=== PATIENT | male | born 1970 | race Caucasian/White ===

== ENCOUNTER 2019-05-09 17:40 | Inpatient (IN) | payer MEDICAID ==
[~2019-05-09] VITALS: Ht 180.3 cm; Wt 94.8 kg
[2019-05-09 17:40] VITALS: BP 172/118
--- NOTE | 2019-05-09 17:40 | NUR ---
PT BIBA TO ER BED 10
[2019-05-09] MEDS ORDERED: FUROSEMIDE 40 MG/4 ML VIAL IVP ONE ×2 (17:46→17:50)
[2019-05-09] MEDS ORDERED: ALBUTEROL SULFATE/IPRATROPIU 3 ML SOL IH ONE (17:50)
--- NOTE | 2019-05-09 17:59 | NUR ---
PT BIBA FROM STREET. PER [id number] C/O SOB FOR ONE HOUR AND GENERALIZED BODY EDEMA STARTED FROM BILATERAL LEGS ABOUT 6 MONTHS AGO. PT DENIES HAVING CP, COUGH, PMH, TAKEN MEDS. LUNG BASED AUSCULTATED WHEEZING BILATERAL. EDEMA ON LOWER EXTREMETIES EDEMA BILATERAPATIENT, EYE LIDS, FACE NOTICED. LUNGS AUSCULTATED WHEEZES ON BASES. STATES PAIN OF 4/10 ON THE SKIN OF LEGS AT THIS TIME; VSS; PATIENT POSITIONED FOR COMFORT; HOB ELEVATED; BEDRAILS UP X2; BED DOWN. ER MD MADE AWARE OF PT STATUS.
[2019-05-09 18:19] LABS: BASOPHILS # (AUTO) 0.1 K/uL (0.00-0.22); BASOPHILS % (AUTO) 0.8 % (0.0-2.0); EOSINOPHILS # (AUTO) 0.1 K/uL (0-0.4); EOSINOPHILS % (AUTO) 1.7 % (0.0-4.0); HEMATOCRIT 49.3 % (36-52); HEMOGLOBIN 16.2 g/dL (12.0-18.0); LYMPHOCYTES # (AUTO) 1.6 K/uL (2.0-11.5); LYMPHOCYTES % (AUTO) 21.2 % (20.5-51.1); MEAN CORPUSCULAR HEMOGLOBIN 31 pg (27-31); MEAN CORPUSCULAR HGB CONC 33 g/dL (33-37); MONOCYTES # (AUTO) 0.6 K/uL (0.8-1.0); MONOCYTES % (AUTO) 8.6 % (1.7-9.3); NEUTROPHILS % (AUTO) 67.7 % (42.2-75.2); PLATELET COUNT (AUTO) 221 K/uL (140-450); RED BLOOD CELL COUNT(AUTO) 5.25 MIL/uL (4.20-6.10); RED CELL DISTRIBUTION WIDTH 14.3 % (11.6-13.7); WHITE BLOOD COUNT (AUTO) 7.4 K/uL (4.8-10.8)
[2019-05-09 18:54] LABS: PROTHROMBIN TIME 9.9 secs (10.8-13.4)
[2019-05-09 19:02] LABS: ALBUMIN 3.1 g/dL (3.4-5.0); ANION GAP 11.9 (8-16); CARBON DIOXIDE 28.6 mmol/L (21-32); CREATININE 1.1 mg/dL (0.7-1.3); POTASSIUM 4.5 mmol/L (3.5-5.1); TOTAL BILIRUBIN 1.1 mg/dL (0.0-1.0)
[2019-05-09 19:20] LABS: APPEARANCE,URINE CLEAR (CLEAR); BILIRUBIN,URINE NEGATIVE (NEGATIVE); BLOOD, URINE NEGATIVE (NEGATIVE); LEUKOCYTE ESTERASE ,URINE NEGATIVE (NEGATIVE); NITRITE, URINE NEGATIVE (NEGATIVE); PH,URINE 5.5 (5.0-9.0); UGLUCOSE NEGATIVE (NEGATIVE)
[2019-05-09] MEDS: NACL 0.9% 1,000 ML IV SCH (19:21)
[2019-05-09 19:22] LABS: COLOR,URINE STRAW (YELLOW)
[2019-05-09] MEDS ORDERED: HYDROcodone/APAP 5/325 MG 1 TAB TAB PO PRN (19:25)
[2019-05-09] MEDS ORDERED: ZOLPIDEM 5 MG TAB PO PRN (19:25)
[2019-05-09] MEDS ORDERED: LORazepam 2 MG/ML VIAL IM/IVP PRN (19:25)
[2019-05-09] MEDS ORDERED: ACETAMINOPHEN 325 MG TAB PO PRN (19:25)
[2019-05-09] MEDS ORDERED: ONDANSETRON 4 MG/2 ML VIAL IM/IVP PRN (19:25)
[2019-05-09] MEDS ORDERED: DOCUSATE SODIUM 100 MG GELCAP PO PRN (19:25)
[2019-05-09] MEDS ORDERED: MORPHINE SULFATE 2 MG/ML SYR IVP PRN (19:25)
[2019-05-09] MEDS ORDERED: ALBUTEROL SULFATE/IPRATROPIU 3 ML SOL IH PRN (19:30)
--- NOTE | 2019-05-09 19:53 | NUR ---
Patient will be admitted to care of [facility]. Admited to TELE. Will go to room 119B. Belongings list completed. Report to DEBORAH LEWIS.
--- NOTE | 2019-05-09 20:00 | NUR ---
PT BROUGHT UP TO UNIT BY DEMETRIA TO ROOM 119 AND ASSISTED EMT'S TO BED B. PT IS AOX 1-2. HE IS ALERT BUT LETHARGIC. PT SKIN INTACT, HE DOES HAVE PITTING EDEMA + 1 ON BILATERAL LOWER LEGS. HE HAS A LEFT 18GUAGE AC IV INTACT AND FLUSHED PATENT. PT IS ON 4 LITERS SUPPLEMENTAL 02. PT DENIES ANY MEDICAL HX EXCEPT SURGERY ON RIGHT LOWER LEG. V/S FOLLOWS T 97.1 P 111 R 20 B/P153/117. 02 97% ON 4 LITERS VIA N/C. PT SAYS HE HAS BEEN LIVING IN THE STREETS AND TAKING METHAMPHETAMINES, PT LAURYN ANY MEDICAL HX AT THIS TIME. WILL SPEAK WITH MD TO GET PRN TO LOWER B/P.PT PLACED ON FALLS PRECAUTIONS AT THIS TIME.
[2019-05-09 20:33] LABS: BARBITURATE, URINE NEG. ng/ml (NEG <=200); BENZODIAZEPINE, URINE NEG. ng/mL (NEG <=200); CANNABINOID, URINE NEG. ng/mL (NEG <=50); COCAINE, URINE NEG. ng/mL (NEG <=300); OPIATE, URINE NEG. ng/mL (NEG <=2000); PHENCYCLIDINE SCREEN,URINE NEG. ng/mL (NEG <=25)
[2019-05-09 20:40] LABS: CHOL/HDL RATIO 4.2 (1-4.5); MAGNESIUM 1.7 mg/dL (1.8-2.4); PHOSPHORUS 5.6 mg/dL (2.5-4.9); THYROID STIMULATING HORMONE 1.89 uIU/mL (0.34-3.74)
[2019-05-09] MEDS ORDERED: ENALAPRILAT 2.5 MG/2 ML VIAL IVP PRN (20:45)
[2019-05-09] MEDS ORDERED: MAGNESIUM OXIDE 400 MG TAB PO SCH (22:00)
[2019-05-09] MEDS: BUDESONIDE 0.5 MG/2 ML NEBU INH SCH (22:03)
[2019-05-09] MEDS: hydrALAZINE 20 MG/ML VIAL IVP PRN (22:15)
--- NOTE | 2019-05-09 22:15 | NUR ---
SPOKE WITH MD ARORA WHO ORDERED 2 PRN AND SAID TO GIVE BOTH AT THIS TIME. PT GIVEN IVP PRN'S FOR HTN. PT ALSO GIVEN NORCO FOR 5/10 MODERATE PAIN IN LEGS. PT ALSO GIVEN ORDERED MAG OXIDE 800MG FOR DECREASED MAGNESIUM. WILL REEVALUATE B/P LATER.
--- NOTE | 2019-05-09 23:45 | NUR ---
[PT IN BED RESTING WITH NO S/S OF PAIN OR DISTRESS NOTED V/S FOLLOWS: T 97.0 P 102 R 18 B/P 126/86 02 96% WITH 4 LITERS VIA N/C.
[2019-05-10] VITALS (7 sets, daily range): BP systolic 103–153; BP diastolic 70–117
[2019-05-10] MEDS: ALBUTEROL SULFATE/IPRATROPIU 3 ML SOL IH SCH ×4 (01:00→19:47)
--- NOTE | 2019-05-10 02:00 | NUR ---
PT IN BED NO S/S OF PAIN OR DISTRESS NOTED. PT CONTINUES ON 4 LITERS VIA N/C. IV SITE INTACT AND FLUSHED PATENT FLUID RATE CHANGED TO(10) KVO. PT SLEEPING SOUNDLY ALL FALLS PRECAUTIONS IN PLACE. AND CALL LOPEZ IN REACH.
[2019-05-10] MEDS ORDERED: AZITHROMYCIN 250 MG TAB PO SCH (03:00)
[2019-05-10] MEDS ORDERED: cefTRIAXone 1,000 MG VIAL ONE (03:07)
--- NOTE | 2019-05-10 03:22 | NUR ---
PT GIVEN DUE ROCEPHIN ORDERED, IT'S HUNG AND RUNNING AT 100MLS/HR ORDERED. WILL MONITOR FOR SIDE EFFECTS. PT IS IN BED, HE PULLED OFF N/C WHICH WAS PLACED BACK ON HIM AND EXPLAINED TO PT THAT HE NEEDS TO KEEP N/C ON . PT VERBALIZED UNDERSTANDING. ALL FALLS PRECAUTIONS IN PLACE AND CALL LOPEZ IN REACH.
--- NOTE | 2019-05-10 04:15 | NUR ---
PT IN BED SLEEPING BUT AROUSABLE TO NAME AND LIGHT SHAKING. V/S FOLLOWS T 97.0 P 105 R 18 B/P 128/88 02 95% WITH 4 LITERS VIA N/C. ALL FALLS PRECAUTIONS IN PLACE AND CALL LOPEZ IN REACH. NO S/S OF PAIN OR DISTRESS NOTED. PT GIVEN ORDERED ZITHROMAX 500MG TABS. Addendum: 05/10/19 at 0626 by Lori Gallegos RN DUPLICATE NOTE
--- NOTE | 2019-05-10 05:30 | NUR ---
BLOOD DRAWS AT BEDSIDE.
[2019-05-10 06:19] LABS: BASOPHILS # (AUTO) 0.1 K/uL (0.00-0.22); BASOPHILS % (AUTO) 0.6 % (0.0-2.0); EOSINOPHILS # (AUTO) 0.1 K/uL (0-0.4); EOSINOPHILS % (AUTO) 1.3 % (0.0-4.0); HEMATOCRIT 51.1 % (36-52); HEMOGLOBIN 16.8 g/dL (12.0-18.0); LYMPHOCYTES # (AUTO) 1.6 K/uL (2.0-11.5); MEAN CORPUSCULAR HEMOGLOBIN 31 pg (27-31); MEAN CORPUSCULAR HGB CONC 33 g/dL (33-37); MEAN CORPUSCULAR VOLUME 94.1 fL (80-94); MONOCYTES # (AUTO) 0.7 K/uL (0.8-1.0); MONOCYTES % (AUTO) 7.1 % (1.7-9.3); NEUTROPHILS # (AUTO) 7.4 K/uL (1.8-7.7); PLATELET COUNT (AUTO) 217 K/uL (140-450); RED BLOOD CELL COUNT(AUTO) 5.44 MIL/uL (4.20-6.10); RED CELL DISTRIBUTION WIDTH 14.1 % (11.6-13.7); WHITE BLOOD COUNT (AUTO) 9.8 K/uL (4.8-10.8)
[2019-05-10 06:28] LABS: CARBON DIOXIDE 31.5 mmol/L (21-32); CREATININE 1.1 mg/dL (0.7-1.3); POTASSIUM 4.5 mmol/L (3.5-5.1)
--- NOTE | 2019-05-10 07:10 | NUR ---
RECEIVED REPORT FROM PM NURSEDEBORAH. PT IS BED RECEIVING A BREATHING TREATMENT, RT IN THE ROOM. PT APPEARS STABLE WITHOUT SIGNS OF DISTRESS.
[2019-05-10] MEDS: BUDESONIDE 0.5 MG/2 ML NEBU INH SCH ×2 (07:16→22:53)
[2019-05-10] MEDS: ASPIRIN 81 MG TAB.CHEW PO SCH (09:34)
[2019-05-10] MEDS: CARVEDILOL 3.125 MG TAB PO SCH (09:34)
[2019-05-10] MEDS: FUROSEMIDE 40 MG/4 ML VIAL IVP SCH ×2 (09:35→16:51)
--- NOTE | 2019-05-10 10:00 | NUR ---
PT RESTING IN BED, AROUSAL TO NAME, IV RUNNING NS 10 ML.H. EMPTIED URINAL OF 55OML OF CLEAR YELLOW URINE. Addendum: 05/10/19 at 1822 by Charmaine Masterson RN AWAKES TO NAME
[2019-05-10] MEDS: LACTOBACILLUS RHAMNOSUS GG 1 EACH CAP PO SCH (10:32)
[2019-05-10] MEDS: LISINOPRIL 5 MG TAB PO SCH (10:33)
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
--- NOTE | 2019-05-10 15:00 | NUR ---
PT ASLEEP IN BED, CALL LIGHT WITHIN REACH. IV RUNNING NS AT 10 ML/HR.
--- NOTE | 2019-05-10 18:00 | NUR ---
PT IS EATING DINNER, CALL LIGHT WITHIN REACH, IV RUNNING AT 10 ML/HR. PT IS STABLE AND NO SIGNS OF DISTRESS.
--- NOTE | 2019-05-10 19:10 | NUR ---
GAVE REPORT TO PM NURSE, DEBORAH. PT IS ASLEEP IN BED, RESPIRATION ARE EVEN AND UNLABORED. CALL LIGHT WITHIN REACH.
--- NOTE | 2019-05-10 19:10 | NUR ---
RECEIVED REPORT FORM SYED RN DAYSHIFT NURSE AT BEDSIDE FOR CONTINUITY OF CARE, PT IN STABLE CONDITION.
[2019-05-10] MEDS: NACL 0.9% 1,000 ML IV SCH (19:21)
--- NOTE | 2019-05-10 19:48 | NUR ---
PT RECEIVED ON RA WITH SP02 94% AND CLEAR BREATH SOUNDS. TX GIVEN ORDERED WITH NO ADVERSE REACTION. NO RESPIRATORY DISTRESS NOTED. WILL CONTINUE TO MONITOR PT
--- NOTE | 2019-05-10 20:00 | NUR ---
PT IN BED, HE VOIDED 850 OF LIGHT COLORED URINE. IV SITE INTACT AND RUNNING N/S AT 10MLS/HR TO KVO. V/S FOLLOWS T 97.0 P 102 R 18 B/P 112/70 02 93% ON ROOM AIR. PT DENIES PAIN AT THIS TIME. ALL FALLS PRECAUTIONS IN PLACE AND CALL LOPEZ IN REACH.
--- NOTE | 2019-05-10 21:00 | NUR ---
PT IN BED ALL FALLS PRECAUTIONS IN PLACE, HE DENIES PAIN, AT THIS TIME. PT GIVEN ORDERED LIPITOR FOR HLD AND HEPARIN SHOT FOR DVT POLYLACTIC. PLATELETS 217, PT 9.9 INR 0.98. ALL REQUESTED NEEDS ATTENDED AND CALL LOPEZ IN REACH.
[2019-05-10] MEDS: ATORVASTATIN 20 MG TAB PO SCH (22:30)
--- NOTE | 2019-05-10 23:00 | NUR ---
SPOKE WITH MD ANNE REGARDING PT DIET IS CCHO-60, PT DENIES ANY DM IN HX, PT PLACED ON CARDIAC DIET INSTEAD.
[2019-05-11] VITALS (7 sets, daily range): BP systolic 122–163; BP diastolic 83–102
--- NOTE | 2019-05-11 00:20 | NUR ---
PT IN BED SLEEPING AND ON ROOM AIR NO S/S OF PAIN OR DISTRESS NOTED V/S FOLLOWS : T 98.0 P 101 R 18 B/P 134/83 02 94% ON ROOM AIR . IV SITE ON RIGHT AC INTACT AND RUNNING NS T 10 TO KVO, ALL FALLS PRECAUTIONS IN PLACE AND CALL LOPEZ IN REACH.
[2019-05-11] MEDS: ALBUTEROL SULFATE/IPRATROPIU 3 ML SOL IH SCH ×4 (01:45→19:17)
--- NOTE | 2019-05-11 03:15 | NUR ---
RAUL GAN AND IS RUNNING AT 100MLS/HR ORDERED.
--- NOTE | 2019-05-11 06:38 | NUR ---
PATIENT HAS BEEN SCREENED AND CATEGORIZED HIGH NUTRITION RISK. PATIENT WILL BE SEEN WITHIN 1-2 DAYS OF ADMISSION. 05/11/19-05/12/19 HUMBERTO PLUMMER MS, RDN
[2019-05-11 06:49] LABS: BASOPHILS # (AUTO) 0.1 K/uL (0.00-0.22); BASOPHILS % (AUTO) 0.7 % (0.0-2.0); EOSINOPHILS # (AUTO) 0.1 K/uL (0-0.4); HEMATOCRIT 50.6 % (36-52); HEMOGLOBIN 16.8 g/dL (12.0-18.0); LYMPHOCYTES # (AUTO) 1.5 K/uL (2.0-11.5); LYMPHOCYTES % (AUTO) 19.7 % (20.5-51.1); MEAN CORPUSCULAR HEMOGLOBIN 31 pg (27-31); MEAN CORPUSCULAR HGB CONC 33 g/dL (33-37); MEAN CORPUSCULAR VOLUME 94.3 fL (80-94); MONOCYTES # (AUTO) 0.7 K/uL (0.8-1.0); MONOCYTES % (AUTO) 9.5 % (1.7-9.3); NEUTROPHILS # (AUTO) 5.1 K/uL (1.8-7.7); NEUTROPHILS % (AUTO) 68.1 % (42.2-75.2); PLATELET COUNT (AUTO) 225 K/uL (140-450); RED BLOOD CELL COUNT(AUTO) 5.36 MIL/uL (4.20-6.10); RED CELL DISTRIBUTION WIDTH 14.3 % (11.6-13.7); WHITE BLOOD COUNT (AUTO) 7.4 K/uL (4.8-10.8)
[2019-05-11 06:57] LABS: ANION GAP 12.6 (8-16); CARBON DIOXIDE 28.1 mmol/L (21-32); CREATININE 1.1 mg/dL (0.7-1.3); POTASSIUM 3.7 mmol/L (3.5-5.1)
[2019-05-11 06:59] LABS: MAGNESIUM 1.7 mg/dL (1.8-2.4); PHOSPHORUS 3.3 mg/dL (2.5-4.9)
--- NOTE | 2019-05-11 07:15 | NUR ---
RECEIVED REPORT FROM PM NURSE, DEBORAH. PT IS SLEEPING IN BED. RESPIRATIONS ARE EVEN AND UNLABORED.
[2019-05-11] MEDS: BUDESONIDE 0.5 MG/2 ML NEBU INH SCH ×2 (07:48→19:18)
[2019-05-11] MEDS: AZITHROMYCIN 250 MG TAB PO SCH (08:46)
[2019-05-11] MEDS: CARVEDILOL 3.125 MG TAB PO SCH (08:46)
[2019-05-11] MEDS: LACTOBACILLUS RHAMNOSUS GG 1 EACH CAP PO SCH (08:46)
[2019-05-11] MEDS: FUROSEMIDE 40 MG/4 ML VIAL IVP SCH ×2 (08:46→16:15)
[2019-05-11] MEDS: LISINOPRIL 5 MG TAB PO SCH (08:47)
[2019-05-11] MEDS: ASPIRIN 81 MG TAB.CHEW PO SCH (08:47)
--- NOTE | 2019-05-11 09:21 | NUR ---
PT IS SLEEPING IN BED. IV RUNNING NORMAL SALINE AT 10 ML/HR. PT RESPIRATIONS EVEN AND UNLABORED. PT ON ROOM AIR.
--- NOTE | 2019-05-11 11:45 | NUR ---
PT IS ASLEEP. RESPIRATION EVEN AND UNLABORED. IV RUNNING NS AT 10 ML/HR. EMPTIED URINAL OF 450 ML OF CLEAR, YELLOW URINE.
--- NOTE | 2019-05-11 13:55 | NUR ---
PT IS ASLEEP. RT IS AT BEDSIDE. PT IS RECEIVING A BREATHING TREATMENT. NS RUNNING AT 10 ML/HR. CALL LIGHT WITHIN REACH.
[2019-05-11] MEDS ORDERED: MAGNESIUM OXIDE 400 MG TAB PO SCH (14:10)
--- NOTE | 2019-05-11 14:49 | NUR ---
CT PERSONAL CAME FOR PT AND TOOK HIM FOR CT ANGIO OF CHEST. 18G IV, WAS SALINE LOCKED. PT WAS TRANSFERRED VIA WHEELCHAIR. PT GOT OUT OF BED AND PIVOT ONTO THE WHEELCHAIR. PT WAS ALERT AND AWAKE THROUGH TRANSFER. PT WAS STABLE WITHOUT ANY SIGNS OF DISTRESS.
--- NOTE | 2019-05-11 15:13 | NUR ---
PT IS BACK FROM CT. PT IS IN BED RESTING, CONNECTED PT TO IV PUMP, RUNNING NS AT 10ML/HR. CALL LIGHT WITHIN REACH. PT IS ON ROOM AIR.
--- NOTE | 2019-05-11 16:26 | NUR ---
ARTIFACTS NOTED ON TELEMONITOR. IMMEDIATELY ASSESS PT, PT ASLEEP IN BED, NO DISTRESS. WOKE PT UP BY CALLING HIS NAME. PT AOX4 NO COMPLAIN OF DISCOMFORT. FOUND LEADS PULLING OFF, LEADS CHANGED. TELEMONITOR CURRENT READING SINUS TACHY AT 101 BPM. CALL LIGHT WITHIN REACH. WILL CONTINUE TO MONITOR.
--- NOTE | 2019-05-11 17:34 | NUR ---
PT RESTING IN BED. RESPIRATION ARE EVEN AND UNLABORED. CALL LIGHT WITHIN REACH.
--- NOTE | 2019-05-11 19:10 | NUR ---
GAVE REPORT TO PM NURSE FOR CONTINUATION OF CARE. PT IS STABLE, RESPIRATION ARE EVEN AND UNLABORED. CALL LIGHT WITHIN REACH.
[2019-05-11] MEDS: NACL 0.9% 1,000 ML IV SCH (19:21)
--- NOTE | 2019-05-11 19:34 | NUR ---
PT RECEIVED ON RA WITH SP02 95%, AND CLEAR DIMINISHED BREATH SOUNDS. TX GIVEN ORDERED WITH NO ADVERSE REACTION. NO RESPIRATORY DISTRESS NOTED. WILL CONTINUE TO MONITOR PT
--- NOTE | 2019-05-11 20:30 | NUR ---
PT IN BED RESTING WITH EYES CLOSED BUT AROUSABLE TO NAME AND LIGHT TOUCH. IV SITE 18G ON LEFT AC INTACT AND FLUSHED PATENT. V/S FOLLOWS : T 97.4 P 107 R 18 B/P 140/99 02 95% ON ROOM AIR. PT DENIES PAIN, BUT REQUESTED FOOD. PT PROVIDED SANDWICH , JUICE AND A SMALL PUDDING. ALL FALLS PRECAUTIONS IN PLACE AND CALL LOPEZ IN REACH.
[2019-05-11] MEDS: ATORVASTATIN 20 MG TAB PO SCH (21:28)
--- NOTE | 2019-05-11 21:30 | NUR ---
PT IN BED GIVEN DUE MEDS OF LIPITOR FOR HLD AND SQ HEPARIN SHOT FOR DVT PREVENTION. PLATELETS 225, PT 9.9 INR 0.98. MEDICATION EDUCATION PROVIDED AND PT VERBALIZED UNDERSTANDING. PT DENIES PAIN AND IV SITE INTACT AND FLUSHED PATENT. NS CONTINUES TO RUN AT 10MLS/HR TO KVO. ALL FALLS PRECAUTIONS IN PLACE.
[2019-05-12] VITALS: BP 135/104
--- NOTE | 2019-05-12 01:00 | NUR ---
PT IN BED RESTING WITH EYES CLOSED, BUT AROUSABLE TO LIGHT TOUCH. IV SITE INTACT AND ASYMPTOMATIC. V/S FOLLOWS : T 97.0 P 107 R 18 B/P 135/101 02 94% ON ROOM AIR. PT GIVEN PRN/IVP HYDRALAZINE 10MG/0.5MLS FOR ELEVATED DIASTOLIC PRESSURE, WILL RE-EVALUATE LATER. PT HAS NO S/S OF PAIN OR DISTRESS NOTED. ALL FALLS PRECAUTIONS IN PLACE.
[2019-05-12] MEDS: hydrALAZINE 20 MG/ML VIAL IVP PRN ×2 (01:02→12:08)
[2019-05-12] MEDS: ALBUTEROL SULFATE/IPRATROPIU 3 ML SOL IH SCH ×3 (01:13→13:37)
--- NOTE | 2019-05-12 02:00 | NUR ---
RE-EVALUATE B/P IS 128/78 P 100 02 93% ON ROOM AIR.
[2019-05-12 04:00] VITALS: BP 132/82
--- NOTE | 2019-05-12 04:00 | NUR ---
PT IN BED ALL V/S FOLLOWS : T 97.0 P 104 R 18 B/P 132/82 02 93% ON ROOM AIR. NO S/S OF PAIN OR DISTRESS NOTED, IV SITE ASYMPTOMATIC AND RUNNING N/S AT 10 TO KVO. ALL FALLS PRECAUTIONS IN PLACE AND CALL LOPEZ IN REACH.
[2019-05-12 06:06] LABS: BASOPHILS # (AUTO) 0.1 K/uL (0.00-0.22); EOSINOPHILS # (AUTO) 0.2 K/uL (0-0.4); EOSINOPHILS % (AUTO) 2.1 % (0.0-4.0); HEMATOCRIT 52.9 % (36-52); HEMOGLOBIN 17.5 g/dL (12.0-18.0); LYMPHOCYTES # (AUTO) 1.5 K/uL (2.0-11.5); LYMPHOCYTES % (AUTO) 18.8 % (20.5-51.1); MEAN CORPUSCULAR HEMOGLOBIN 31 pg (27-31); MEAN CORPUSCULAR HGB CONC 33 g/dL (33-37); MONOCYTES # (AUTO) 0.8 K/uL (0.8-1.0); MONOCYTES % (AUTO) 10.1 % (1.7-9.3); NEUTROPHILS # (AUTO) 5.5 K/uL (1.8-7.7); PLATELET COUNT (AUTO) 227 K/uL (140-450); RED BLOOD CELL COUNT(AUTO) 5.63 MIL/uL (4.20-6.10); WHITE BLOOD COUNT (AUTO) 8.1 K/uL (4.8-10.8)
[2019-05-12 06:35] LABS: ANION GAP 12.6 (8-16); CARBON DIOXIDE 28.5 mmol/L (21-32); CREATININE 1.1 mg/dL (0.7-1.3); POTASSIUM 4.1 mmol/L (3.5-5.1)
[2019-05-12 06:45] LABS: MAGNESIUM 1.9 mg/dL (1.8-2.4); PHOSPHORUS 2.2 mg/dL (2.5-4.9)
--- NOTE | 2019-05-12 07:10 | NUR ---
RECEIVED REPORT FROM METER ATTENDANT NURSE. PATIENT IS LYING IN BED, ASLEEP, ABLE TO WAKE. RESPIRATION EVEN AND UNLABORED. IV INTACT AND PATENT TO LEFT AC WITH NS @10ML/HR. BED IN LOW POSITION. WILL CONTINUE TO MONITOR. CALL LIGHT WITHIN REACH.
[2019-05-12] MEDS: BUDESONIDE 0.5 MG/2 ML NEBU INH SCH (07:28)
[2019-05-12 08:00] VITALS: BP 150/101
[2019-05-12] MEDS ORDERED: SPIR50TA PO (08:13)
[2019-05-12] MEDS ORDERED: LISI-424 PO (08:13)
[2019-05-12] MEDS ORDERED: ALBU-118 IH (08:13)
[2019-05-12] MEDS ORDERED: ASPI81CT95 PO (08:13)
[2019-05-12] MEDS ORDERED: CARV3.122 PO (08:13)
[2019-05-12] MEDS ORDERED: ATOR20TA40 PO (08:13)
[2019-05-12] MEDS: LACTOBACILLUS RHAMNOSUS GG 1 EACH CAP PO SCH (08:48)
[2019-05-12] MEDS: AZITHROMYCIN 250 MG TAB PO SCH (08:49)
[2019-05-12] MEDS: ASPIRIN 81 MG TAB.CHEW PO SCH (08:49)
[2019-05-12] MEDS: LISINOPRIL 5 MG TAB PO SCH (08:50)
[2019-05-12] MEDS: CARVEDILOL 3.125 MG TAB PO SCH (08:50)
[2019-05-12] MEDS: FUROSEMIDE 40 MG/4 ML VIAL IVP SCH ×2 (08:51→17:00)
--- NOTE | 2019-05-12 08:51 | NUR ---
AM MEDICATIONS GIVEN ORDERED. TOLERATED WELL. DR. ROSARIO AT BEDSIDE.
[2019-05-12 09:30] VITALS: BP 142/82
--- NOTE | 2019-05-12 11:25 | NUR ---
PATIENT IS AWAKE, ALERT, VERBALLY RESPONSIVE. IV ROCEPHIN GIVEN ORDERED. WILL MONITOR PATIENT. NO S/S OF DISTRESS NOTED. Addendum: 05/12/19 at 1723 by Melina Zimmerman RN PLEASE DISREGARD ABOVE NOTE. NOTE IS FOR A DIFFERENT PATIENT.
--- NOTE | 2019-05-12 11:30 | NUR ---
PT IS ALERT AND VERBALLY RESPONSIVE. AMBULATED TO THE BATHROOM WITH STEADY GAIT. NO S/S OF DISTRESS NOTED.
[2019-05-12 12:00] VITALS: BP 140/80
[2019-05-12] MEDS ORDERED: FURO-572 PO (13:04)
[2019-05-12] MEDS ORDERED: POTA10TE30 PO (13:04)
--- NOTE | 2019-05-12 14:00 | NUR ---
PT AMBULATES SELF TO THE RESTROOM WITH STEADY GAIT. ALERT AND ORIENTED X4. DENIES PAIN OR DISCOMFORT. WILL CONTINUE TO MONITOR.
[2019-05-12 16:00] VITALS: BP 150/89
--- NOTE | 2019-05-12 17:10 | NUR ---
PT DISCHARGED WITH HIS FRIEND KENROY TO HOME VIA PRIVATE VEHICLE. ALL DISCHARGE INSTRUCTIONS GIVEN AND ALL BELONGINGS GIVEN WITH PATIENT. IV CANNULA REMOVED. BLEEDING CONTROLLED. ID BAND REMOVED.
== END 2019-05-12 17:10 | disposition home or self-care (01) | DRG 194 ==
LOC: MED 17:40 → MTU 19:07 → MMU 05-10 11:01
PROVIDERS: ADMIT General Practice; ATTEND General Practice
DX: I50.43 Acute on chronic combined systolic (congestive) and diastolic (congestive) heart failure (principal); E44.0 Moderate protein-calorie malnutrition; E86.0 Dehydration; E83.42 Hypomagnesemia; E83.39 Other disorders of phosphorus metabolism; J44.1 Chronic obstructive pulmonary disease with (acute) exacerbation; F17.210 Nicotine dependence, cigarettes, uncomplicated; F15.10 Other stimulant abuse, uncomplicated; R73.03 Prediabetes; K70.30 Alcoholic cirrhosis of liver without ascites; Z68.29 Body mass index [BMI] 29.0-29.9, adult; Z71.6 Tobacco abuse counseling
CPT/HCPCS: 36415; 36600; 71045; 71275; 76770; 80048; 80053; 80305; 81003; 82803; 83036; 83605; 83690; 83735; 83880; 84100; 84134; 84443; 84484; 85025; 85610; 85730; 87040; 87081; 87086; 93005; 94640; 96374; 99285; J0360; J0696; J1644; J1940; J3490; J7030; J7060; J7620; J7626; Q0092; Q9967

== ENCOUNTER 2019-06-16 19:39 | Emergency (ER) | payer MEDICAID ==
[~2019-06-16] VITALS: Ht 180.3 cm; Wt 79.8 kg
[~2019-06-16 19:39] MED LIST: ALBU-118 IH; ASPI81CT95 PO; ATOR20TA40 PO; CARV3.122 PO; FURO-572 PO; LISI-424 PO; POTA10TE30 PO
[2019-06-16 19:40] VITALS: BP 160/110
--- NOTE | 2019-06-16 19:50 | NUR ---
PT LEATHA BLS. TAKEN TO BED 5
[2019-06-16] MEDS ORDERED: NACL 0.9% 1,000 ML IV SCH (19:57)
--- NOTE | 2019-06-16 20:04 | NUR ---
EMT PERFORMING EKG AT BEDSIDE.
--- NOTE | 2019-06-16 20:08 | NUR ---
SIGNALMAN AT BEDSIDE FOR ABG DRAW.
--- NOTE | 2019-06-16 20:10 | NUR ---
LABS DRAWN AT BEDSIDE BY RN, COLLECTED BY PHLEB.
--- NOTE | 2019-06-16 20:20 | NUR ---
49 YO M BIBA FROM STREETS FOR C/O SOB. PER EMS, PT WAS ADMITTED APPROX X 1 MONTH AGO TO THIS HOSPITAL FOR PNA AND CHF. PT IS HOMELESS AND WAS UNABLE TO FOLLOW UP WITH CLINIC OR FILL ANY OF HIS DISCHARGE RX. PT REPORTS SOB STARTED YESTERDAY. HE STATES "I CAN'T EVEN WALK ACROSS THE STREET WITHOUT HAVING TO CATCH MY BREATH". PT ARRIVES AWAKE, A/O X 4. IS TACHYPNIC WITH EVEN, LABORED BREATHING. COARSE CRACKLES HEARD BILATERALLY THROUGHOUT. PT COUGHS WITH DEEP BREATHING. SKIN IS PINK, WARM, DRY. LOWER EXTREMETIES ARE RED, SWOLLEN WITH WEEPING EDEMA, PITTING 2+. PT ALSO ADMITS TO SMOKING METH YESTERDAY.
[2019-06-16 20:24] LABS: BASOPHILS # (AUTO) 0.1 K/uL (0.00-0.22); EOSINOPHILS # (AUTO) 0.1 K/uL (0-0.4); EOSINOPHILS % (AUTO) 1.1 % (0.0-4.0); HEMATOCRIT 49.1 % (36-52); HEMOGLOBIN 16.1 g/dL (12.0-18.0); LYMPHOCYTES # (AUTO) 1.6 K/uL (2.0-11.5); LYMPHOCYTES % (AUTO) 18.7 % (20.5-51.1); MEAN CORPUSCULAR HEMOGLOBIN 31 pg (27-31); MEAN CORPUSCULAR HGB CONC 33 g/dL (33-37); MEAN CORPUSCULAR VOLUME 94.1 fL (80-94); MONOCYTES # (AUTO) 0.7 K/uL (0.8-1.0); MONOCYTES % (AUTO) 8.1 % (1.7-9.3); NEUTROPHILS # (AUTO) 6.2 K/uL (1.8-7.7); NEUTROPHILS % (AUTO) 71.1 % (42.2-75.2); PLATELET COUNT (AUTO) 236 K/uL (140-450); RED BLOOD CELL COUNT(AUTO) 5.22 MIL/uL (4.20-6.10); RED CELL DISTRIBUTION WIDTH 14.4 % (11.6-13.7); WHITE BLOOD COUNT (AUTO) 8.8 K/uL (4.8-10.8)
[2019-06-16 20:34] LABS: ANION GAP 14.5 (8-16); CARBON DIOXIDE 22.6 mmol/L (21-32); CHLORIDE 107 mmol/L (98-107); CREATININE 1.2 mg/dL (0.7-1.3); GFR ARICAN-AMERICAN 83 mL/min (>90); GLUCOSE 117 mg/dL (74-106); POTASSIUM 4.1 mmol/L (3.5-5.1); SODIUM SERUM 140 mmol/L (136-145); UREA NITROGEN, BLOOD 26 mg/dL (7-18)
--- NOTE | 2019-06-16 20:34 | NUR ---
X-Ray at bedside.
[2019-06-16 20:40] LABS: ACETAMINOPHEN < 0.5 ug/ml (10-30); ALBUMIN 3.1 g/dL (3.4-5.0); ASPARTATE AMINOTRANSFERASE 46 U/L (15-37); SALICYLATE < 2.8 mg/dL (2.8-20.0)
--- NOTE | 2019-06-16 20:49 | NUR ---
Dr. Oliveira examining patient.
[2019-06-16 21:23] LABS: BARBITURATE, URINE NEG. ng/ml (NEG <=200); BENZODIAZEPINE, URINE NEG. ng/mL (NEG <=200); CANNABINOID, URINE NEG. ng/mL (NEG <=50); COCAINE, URINE NEG. ng/mL (NEG <=300); OPIATE, URINE NEG. ng/mL (NEG <=2000); PHENCYCLIDINE SCREEN,URINE NEG. ng/mL (NEG <=25)
--- NOTE | 2019-06-16 21:27 | NUR ---
PT LAYING SEMI TELLEZ IN BED, IN POSITION OF COMFORT. SPO2 97% ON O2 2L NC, RR 22 EVEN AND MILDLY LABORED. REPORTS MILD TOLERABLE SOB. REPORTS 9/10 BLE PAIN, +[address] LUJAN AWARE. ALL NEEDS MET AT THIS TIME.
--- NOTE | 2019-06-16 22:38 | NUR ---
PATIENT RESTING WITH EYES CLOSED, BREATHING EVEN AND UNLABORED
--- NOTE | 2019-06-17 00:03 | NUR ---
PATIENT RESTING WITH EYES CLOSED, BREATHING EVEN AND UNLABORED, WILL CONTINUE TO MONITOR.
--- NOTE | 2019-06-17 01:09 | NUR ---
PT SLEEPING IN BED, AROUSABLE TO NAME, RR EVEN AND UNLABORED. VS NOTED. ALL NEEDS MET AT THIS TIME.
--- NOTE | 2019-06-17 01:21 | NUR ---
PATIENT RESTING WITH EYES CLOSED, BREATHING EVEN AND UNLABORED
--- NOTE | 2019-06-17 02:50 | NUR ---
DR. SHELTON MADE AWARE OF BP (170/126). DR. SHELTON STATES IS RELATED TO METH USE. OK TO DISCHARGE
[2019-06-17 02:58] VITALS: BP 170/126
--- NOTE | 2019-06-17 02:58 | NUR ---
Patient given written and verbal discharge instructions and verbalizes understanding. Given copies of tests performed during visit. Patient is awake, alert and oriented. Ambulatory with steady gait. Refuses offer of care home placement. Given list of available shelters in surrounding areas. Bus pass and homeless food packet provided.
== END 2019-06-17 02:58 | disposition home or self-care (01) ==
LOC: MED 19:39
DX: J44.1 Chronic obstructive pulmonary disease with (acute) exacerbation (principal); I11.0 Hypertensive heart disease with heart failure; I50.9 Heart failure, unspecified; Z79.899 Other long term (current) drug therapy; Z79.82 Long term (current) use of aspirin
CPT/HCPCS: 36415; 36600; 71045; 80053; 80305; 82803; 83605; 83880; 85025; 87040; 87804; 93005; 99284; G0480; G0482; Q0092; J7030

== ENCOUNTER 2019-07-03 04:07 | Emergency (ER) | payer SELFPAY ==
[~2019-07-03] VITALS: Ht 180.3 cm; Wt 77.1 kg
[2019-07-03] MEDS ORDERED: FUROSEMIDE 40 MG/4 ML VIAL IVP ONE (04:15)
[2019-07-03 04:19] VITALS: BP 136/101
--- NOTE | 2019-07-03 04:20 | NUR ---
PT BIB EMS FOR SOB AND C/O RIGHT FLANK PAIN. PT REPORTS HAVING COUGH X1 MONTH AND BEING DIAGNOSED WITH PNA. PT WITH GENERALIZED WEAKNESS AND LETHARGY. PT DENIES ALCHOL INTAKE BUT REPORTS METH USE 3 DAYS AGO. PT STATES HE TAKES LASIX BUT MISSED HIS DOSE YESTERDAY. FACIAL SWELLING AND BLE PITTING EDEMA NOTED. PT DENIES TRAUMA OR FALL. PT ON ROOM AIR WITH O2 AT 95%. BED LOWERED WITH SIDE RAILS UP
--- NOTE | 2019-07-03 04:30 | NUR ---
EKG PERFORMED AT BEDSIDE
[2019-07-03 04:35] LABS: BASOPHILS # (AUTO) 0.1 K/uL (0.00-0.22); BASOPHILS % (AUTO) 0.7 % (0.0-2.0); EOSINOPHILS # (AUTO) 0.1 K/uL (0-0.4); EOSINOPHILS % (AUTO) 1.8 % (0.0-4.0); HEMATOCRIT 49.2 % (36-52); HEMOGLOBIN 15.9 g/dL (12.0-18.0); LYMPHOCYTES # (AUTO) 1.5 K/uL (2.0-11.5); LYMPHOCYTES % (AUTO) 19.4 % (20.5-51.1); MEAN CORPUSCULAR HEMOGLOBIN 31 pg (27-31); MEAN CORPUSCULAR HGB CONC 32 g/dL (33-37); MONOCYTES # (AUTO) 0.8 K/uL (0.8-1.0); MONOCYTES % (AUTO) 10.5 % (1.7-9.3); NEUTROPHILS # (AUTO) 5.2 K/uL (1.8-7.7); NEUTROPHILS % (AUTO) 67.6 % (42.2-75.2); PLATELET COUNT (AUTO) 210 K/uL (140-450); RED BLOOD CELL COUNT(AUTO) 5.23 MIL/uL (4.20-6.10); RED CELL DISTRIBUTION WIDTH 13.9 % (11.6-13.7); WHITE BLOOD COUNT (AUTO) 7.7 K/uL (4.8-10.8)
[2019-07-03 04:50] LABS: APPEARANCE,URINE CLEAR (CLEAR); BILIRUBIN,URINE NEGATIVE (NEGATIVE); BLOOD, URINE NEGATIVE (NEGATIVE); COLOR,URINE YELLOW (YELLOW); LEUKOCYTE ESTERASE ,URINE NEGATIVE (NEGATIVE); NITRITE, URINE NEGATIVE (NEGATIVE); UGLUCOSE NEGATIVE (NEGATIVE)
[2019-07-03 04:56] LABS: ANION GAP 8.1 (8-16); CARBON DIOXIDE 33.5 mmol/L (21-32); CREATININE 1.2 mg/dL (0.7-1.3); POTASSIUM 3.6 mmol/L (3.5-5.1); TOTAL BILIRUBIN 0.8 mg/dL (0.0-1.0)
--- NOTE | 2019-07-03 07:28 | NUR ---
IV removed, catheter intact and site benign. Applied folded 4x4 gauze and tape to stop bleeding.
[2019-07-03 07:29] VITALS: BP 115/80
--- NOTE | 2019-07-03 07:29 | NUR ---
Patient discharged with v/s stable. Written and verbal after care instructions given and explained. Patient alert, oriented and verbalized understanding of instructions. Ambulatory with steady gait. All questions addressed prior to discharge. ID band removed. Patient advised to follow up with PMD. Pt provided with a bus pass. Rx of Lasix 40mg given. Patient educated on indication of medication including possible reaction and side effects. Opportunity to ask questions provided and answered.
== END 2019-07-03 07:28 | disposition home or self-care (01) ==
LOC: MED 04:07
DX: I11.0 Hypertensive heart disease with heart failure (principal); I50.9 Heart failure, unspecified; F15.10 Other stimulant abuse, uncomplicated; F10.20 Alcohol dependence, uncomplicated; Z79.899 Other long term (current) drug therapy
CPT/HCPCS: 36415; 70450; 71045; 80053; 81003; 83880; 84484; 85025; 93005; 96374; 99284; G0482; J1940; Q0092

== ENCOUNTER 2019-09-24 02:10 | Inpatient (IN) | payer OTHER ==
[~2019-09-24] VITALS: Ht 182.9 cm; Wt 99.8 kg
[2019-09-24 02:16] VITALS: BP 154/77
--- NOTE | 2019-09-24 02:16 | NUR ---
PT LEATHA HIGH AND TAKEN TO BED 3 VIA GURNEY.
[2019-09-24] MEDS ORDERED: FUROSEMIDE 40 MG/4 ML VIAL IVP ONE (02:20)
--- NOTE | 2019-09-24 02:20 | NUR ---
LEATHA C/O SOB/CX PAIN X 1 DAY. DESCRIBES CX PAIN SQUEEZING PRESSURE @ 6/10 ON ADULT PAIN SCALE. STATES HE HAS A HISTORY OF CHF AND HAS BEEN NON-COMPLIANT WITH PRESCRIBED MEDICATION REGIMEN. ST ON MONITOR, 105 BPM. +S1, S2 UPON AUSCULTATION. LUNGS DIMINISHED THROUGHOUT. SHALLOW RESPIRATIONS NOTED @ 26/MIN. SPO2 WNL ON RA. +1 PITTING EDEMA TO BUE. +3 PITTING EDEMA TO BLE WITH TANI SKIN NOTED. CAP REFILL 3 SEC. PMH- CHF, HTN, HYPERLIPIDEMIA, DM. MEDS TAKEN ALDACTONE 25MG, METFORMIN 500MG, ATORVASTATIN 40MG, LOW DOSE ASA, LASIX 40MG. ALLERGIES- NONE. Addendum: 09/24/19 at 0317 by LAURA ALSO TAKES CARVEDILOL 6.25MG.
--- NOTE | 2019-09-24 02:22 | NUR ---
LAB AT BEDSIDE.
[2019-09-24 02:35] LABS: BASOPHILS # (AUTO) 0.2 K/uL (0.00-0.22); EOSINOPHILS # (AUTO) 0.1 K/uL (0-0.4); EOSINOPHILS % (AUTO) 1.5 % (0.0-4.0); HEMATOCRIT 46.6 % (36-52); HEMOGLOBIN 15.4 g/dL (12.0-18.0); LYMPHOCYTES # (AUTO) 1.9 K/uL (2.0-11.5); LYMPHOCYTES % (AUTO) 24.1 % (20.5-51.1); MEAN CORPUSCULAR HEMOGLOBIN 31 pg (27-31); MEAN CORPUSCULAR HGB CONC 33 g/dL (33-37); MEAN CORPUSCULAR VOLUME 93.7 fL (80-94); MONOCYTES # (AUTO) 0.8 K/uL (0.8-1.0); MONOCYTES % (AUTO) 9.6 % (1.7-9.3); NEUTROPHILS % (AUTO) 62.8 % (42.2-75.2); PLATELET COUNT (AUTO) 228 K/uL (140-450); RED BLOOD CELL COUNT(AUTO) 4.97 MIL/uL (4.20-6.10); RED CELL DISTRIBUTION WIDTH 15.4 % (11.6-13.7)
--- NOTE | 2019-09-24 02:46 | NUR ---
Dr. Oliveira examining patient.
[2019-09-24 02:49] LABS: SALICYLATE 2.9 mg/dL (2.8-20.0)
[2019-09-24 02:50] LABS: ACETAMINOPHEN < 0.5 ug/ml (10-30)
[2019-09-24 02:53] LABS: PROTHROMBIN TIME 11.7 secs (10.8-13.4)
[2019-09-24 02:56] LABS: CREATININE 1.5 mg/dL (0.6-1.3); TOTAL BILIRUBIN 1.4 mg/dL (0.0-1.0)
[2019-09-24 03:12] LABS: BARBITURATE, URINE NEGATIVE ng/ml (NEG <=200); BENZODIAZEPINE, URINE NEGATIVE ng/mL (NEG <=200); CANNABINOID, URINE NEGATIVE ng/mL (NEG <=50); COCAINE, URINE NEGATIVE ng/mL (NEG <=300); OPIATE, URINE NEGATIVE ng/mL (NEG <=2000); PHENCYCLIDINE SCREEN,URINE NEGATIVE ng/mL (NEG <=25)
[2019-09-24] MEDS ORDERED: ASPIRIN 81 MG TAB.CHEW PO ONE (03:55)
[2019-09-24] MEDS ORDERED: NACL 0.9% 1,000 ML IV SCH (03:59)
[2019-09-24] MEDS ORDERED: HYDROcodone/APAP 7.5/325 MG 1 TAB PO PRN (04:00)
[2019-09-24] MEDS ORDERED: NITROGLYCERIN 0.4 MG TAB SL PRN (04:00)
[2019-09-24] MEDS ORDERED: ONDANSETRON 4 MG/2 ML VIAL IVP PRN (04:00)
[2019-09-24] MEDS ORDERED: ACETAMINOPHEN 325 MG TAB PO PRN (04:00)
[2019-09-24] MEDS ORDERED: METF500T PO ×2 (04:15→14:07)
[2019-09-24] MEDS ORDERED: SPIR50TA PO ×2 (04:15→14:07)
[2019-09-24] MEDS ORDERED: FURO-570 PO ×2 (04:15→14:07)
[2019-09-24] MEDS ORDERED: ATOR40TA PO ×2 (04:15→14:07)
[2019-09-24] MEDS ORDERED: CARV6.25 PO ×2 (04:15→14:07)
[2019-09-24 04:30] VITALS: BP 127/80
--- NOTE | 2019-09-24 04:30 | NUR ---
VSS Pt report given to NAVID AT THIS TIME. ADMITTED TO ROOM 112B Transfer of care at this time.
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
[2019-09-24 04:34] LABS: FREE T4 (FREE THYROXINE) 1.16 ng/dL (0.76-1.46); MAGNESIUM 1.6 mg/dL (1.8-2.4); PHOSPHORUS 4.3 mg/dL (2.5-4.9); THYROID STIMULATING HORMONE 3.3 uIU/mL (0.34-3.74)
[2019-09-24] MEDS ORDERED: ALBUTEROL SULFATE/IPRATROPIU 3 ML SOL IH PRN (05:15)
[2019-09-24] MEDS ORDERED: MAG SULF 2000 MG/WATER PREMIX 50 ML IV ONE (05:15)
[2019-09-24] MEDS ORDERED: ALBUTEROL SULFATE/IPRATROPIU 3 ML SOL IH SCH ×2 (06:00→08:08)
--- NOTE | 2019-09-24 07:21 | NUR ---
PT. WITH MAGNESIUM 2 GMS. INFUSING ORDERED BY RESIDENT MD RT LOW MAGNESIUM LEVEL. PT. SLEEPING AT THIS TIME. ENDORSED TO AM RN FOR CONTINUITY OF CARE.
--- NOTE | 2019-09-24 07:27 | NUR ---
SHIFT REPORT RECEIVED FROM S3B MULTI SENSOR OPERATOR NURSE. PT IS SLEEPING IN BED AT THIS TIME. NO VISIBLE DISTRESS NOTED. SAFETY MEASURES IN PLACE. WILL CONTINUE TO MONITOR. CALL LIGHT IN REACH.
--- NOTE | 2019-09-24 07:28 | NUR ---
ENDORSED PATIENT TO DAY SHIT NURSE. PATIENT IN STABLE CONDITION.
[2019-09-24 08:00] VITALS: BP 110/77
--- NOTE | 2019-09-24 08:48 | NUR ---
PATIENT HAS BEEN SCREENED AND CATEGORIZED MODERATE NUTRITION RISK. PATIENT WILL BE SEEN WITHIN 3-5 DAYS OF ADMISSION. 09/26/19 09/28/[address]
[2019-09-24] MEDS ORDERED: DOCUSATE SODIUM 100 MG GELCAP PO SCH (09:00)
[2019-09-24] MEDS ORDERED: metFORMIN 500 MG TAB PO SCH (09:00)
[2019-09-24] MEDS ORDERED: ASPIRIN 81 MG TAB.CHEW PO SCH ×2 (09:00)
[2019-09-24] MEDS ORDERED: METOPROLOL 25 MG TAB PO SCH (09:00)
[2019-09-24] MEDS ORDERED: CARVEDILOL 6.25 MG TAB PO SCH (09:00)
[2019-09-24] MEDS ORDERED: LISINOPRIL 5 MG TAB PO SCH ×2 (09:00)
[2019-09-24] MEDS ORDERED: SPIRONOLACTONE 50 MG TAB PO SCH (09:00)
[2019-09-24] MEDS ORDERED: FUROSEMIDE 20 MG/2 ML VIAL IVP SCH (09:00)
--- NOTE | 2019-09-24 09:00 | NUR ---
PT IS IN BED. PT ATE BREAKFAST. MORNING MEDICATIONS GIVEN TO PATIENT. NO DISTRESS NOTED. NO COMPLAINS OF PAIN. SAFETY MEASURES IN PLACE. WILL CONTINUE TO MONITOR. CALL LIGHT IN PLACE.
[2019-09-24 10:00] LABS: APPEARANCE,URINE CLEAR (CLEAR); BILIRUBIN,URINE NEGATIVE (NEGATIVE); BLOOD, URINE NEGATIVE (NEGATIVE); COLOR,URINE YELLOW (YELLOW); LEUKOCYTE ESTERASE ,URINE NEGATIVE (NEGATIVE); NITRITE, URINE NEGATIVE (NEGATIVE); UGLUCOSE NEGATIVE (NEGATIVE)
--- NOTE | 2019-09-24 10:24 | NUR ---
AWAKE AND ALERT VERBALLY RESPONSIVE TOLERATED INCENTIVE SPIROMETRY THERAPY WELL WITHOUT INCIDENT ENCOURAGED PATIENT WITH ACKNOWLEDGEMENT TO USE INCENTIVE SPIROMETRY EVERY 1-2 HOURS WHILE AWAKE
--- NOTE | 2019-09-24 11:40 | NUR ---
DISCHARGE PLANNING: THIS IS A 49 Y/O MALE PATIENT, WHO CAME IN DUE TO COUGH AND EDEMA X2 DAYS. PAST MEDICAL HISTORY INCLUDE CHF, COPD, POLYSUBSTANCE ABUSE, HTN, HLD AND KS X2. INITIAL DIAGNOSIS OF CHEST PAIN. SEEN BY CARDIO - WITH RECOMMENDATIONS FOR CARDIO FOLLOW UP OUT PATIENT AND NO NEED FOR CARDIAC IMAGING AT THIS TIME. TROPS WERE NORMAL ON ADMISSION. LABS WNL. WILL PROVIDE HOMELESS RESOURCES TO THE PATIENT.
[2019-09-24 12:00] VITALS: BP 118/82
--- NOTE | 2019-09-24 12:30 | NUR ---
PT IS IN BED. PT IS HAVING LUNCH AT THIS TIME. VITAL SIGNS TAKEN. NO DISTRESS NOTED. NO COMPLAINS OF PAIN. SAFETY MEASURES IN PLACE. WILL CONTINUE TO MONITOR. CALL LIGHT IN PLACE.
[2019-09-24] MEDS ORDERED: ASPI81CT95 PO (14:07)
[2019-09-24] MEDS ORDERED: LISI-424 PO (14:07)
--- NOTE | 2019-09-24 14:30 | NUR ---
PT WAS DISCHARGED TODAY. PT IS HOMELESS. PT SAID HE WAS GOING TO HIS [facility] C[facility] [employer] AT [facility]. PT WAS GIVEN A BUS PASS. APPOINTMENT MADE WITH VANDA MATT. PT WILL FOLLOW UP WITH APOINTMENT. HOMELESS RESOURCES PROVIDED. WAIVER SIGNED. ID BAND REMOVED. IV REMOVED. NO BLEEDING NOTED. PT WAS STABLE AT DISCHARGE. NO DISTRESS OR COMPLAIND OF PAIN REPORTED. PT AMBULATED AT DISCHARGE. PT UNDERSTOOD DISCHARGE INSTRUCTIONS. BELONGINGS WITH PATIENT. DISCHARGE PHOTOGRAPHS TAKEN.
[2019-09-24] MEDS ORDERED: ATORVASTATIN 20 MG TAB PO SCH ×2 (21:00)
== END 2019-09-24 14:50 | disposition home or self-care (01) | DRG 917 ==
LOC: MED 02:10 → MTU 04:04
PROVIDERS: ADMIT General Practice; ATTEND General Practice
DX: T43.621A Poisoning by amphetamines, accidental (unintentional), initial encounter (principal); N17.0 Acute kidney failure with tubular necrosis; I50.23 Acute on chronic systolic (congestive) heart failure; D68.59 Other primary thrombophilia; I42.9 Cardiomyopathy, unspecified; I11.0 Hypertensive heart disease with heart failure; J44.9 Chronic obstructive pulmonary disease, unspecified; E78.5 Hyperlipidemia, unspecified; I50.9 Heart failure, unspecified; E83.42 Hypomagnesemia; I45.81 Long QT syndrome; R73.03 Prediabetes; I07.1 Rheumatic tricuspid insufficiency; E66.3 Overweight; F15.10 Other stimulant abuse, uncomplicated; E80.6 Other disorders of bilirubin metabolism; I25.10 Atherosclerotic heart disease of native coronary artery without angina pectoris; Z79.899 Other long term (current) drug therapy; I25.2 Old myocardial infarction; Z68.29 Body mass index [BMI] 29.0-29.9, adult; Z79.82 Long term (current) use of aspirin; Y92.89 Other specified places as the place of occurrence of the external cause
CPT/HCPCS: 36415; 71045; 76700; 80053; 80305; 81003; 82150; 83036; 83690; 83735; 83880; 84100; 84439; 84443; 84484; 85025; 85610; 85730; 87081; 93005; 96374; 99285; G0480; G0482; J1644; J1940; J3475; J7030; Q0092

== ENCOUNTER 2020-03-25 22:21 | Emergency (ER) | payer MEDICAID, SELFPAY ==
[~2020-03-25] VITALS: Ht 180.3 cm; Wt 80.7 kg
[~2020-03-25 22:21] MED LIST changes: -ALBU-118 IH; -CARV3.122 PO; +CARV6.25 PO; +CARV6.252 PO; +FURO-570 PO; -FURO-572 PO; +HYDR28OI TP; +METF500T PO; -POTA10TE30 PO; +SPIR25TA PO; +SPIR50TA PO
[2020-03-25 22:40] VITALS: BP 163/115
--- NOTE | 2020-03-25 22:44 | NUR ---
PT AMBULATED TO BED 10 WITH STEADY GAIT.
[2020-03-25] MEDS ORDERED: FUROSEMIDE 40 MG/4 ML VIAL IVP ONE (23:05)
--- NOTE | 2020-03-25 23:33 | NUR ---
49 Y/O MALE C/O RETAINING WATER X 4 DAYS. PER PT, UNABLE TO GET REFILL OF PRESCRIBED MEDICATION. PT HYPERTENSIVE AT 163/115. NON PITTING EDEMA BILAT LEGS. PT STATES 02/10 PRESSURE PAIN IN LOWER LEGS. MHX: CHF, HTN, HIGH CHOLESTEROL NKA NEGATIVE COVID SCREEN
--- NOTE | 2020-03-25 23:59 | NUR ---
ERMD AT BEDSIDE EVALUATING PT
[2020-03-26 00:27] VITALS: BP 150/110
--- NOTE | 2020-03-26 00:27 | NUR ---
Patient discharged with v/s stable. Written and verbal after care instructions given and explained. Patient alert, oriented and verbalized understanding of instructions. Ambulatory with steady gait. All questions addressed prior to discharge. ID band removed. IV Discontinued. Patient advised to follow up with PMD. Rx of LASIX, METFORMIN, AND LISINOPRIL given. Patient educated on indication of medication including possible reaction and side effects. Opportunity to ask questions provided and answered.
== END 2020-03-26 00:27 | disposition home or self-care (01) ==
LOC: MED 22:21
DX: R06.02 Shortness of breath (principal); E11.9 Type 2 diabetes mellitus without complications; F17.210 Nicotine dependence, cigarettes, uncomplicated; I50.9 Heart failure, unspecified; Z79.899 Other long term (current) drug therapy; Z96.653 Presence of artificial knee joint, bilateral
CPT/HCPCS: 96374; 99283; J1940

== ENCOUNTER 2020-05-16 11:05 | Emergency (ER) | payer MEDICAID, SELFPAY ==
[~2020-05-16] VITALS: Ht 180.3 cm; Wt 100.7 kg
--- NOTE | 2020-05-16 11:05 | NUR ---
PATIENT LEATHA BLS TO ER BED 09
[2020-05-16 11:07] VITALS: BP 161/100
--- NOTE | 2020-05-16 11:12 | NUR ---
49/M BIBA FROM [employer] C/O RIGHT SCAPULA AND RIGHT POSTERIOR THORACIC PAIN 10/ S/P SLIP AND FALL IN THE SHOWER TODAY AT 0830. PT DENIES LOC, HEAD TRAUMA, BLEEDING. PT CONNECTED TO BEDSIDE MONITOR. HX- DM, HLD, HTN, CHF Addendum: 05/16/20 at 1118 by KATY DENIES TAKING BLOOD THINNERS
--- NOTE | 2020-05-16 11:32 | NUR ---
DR. GAMEZ EVALUATING PT AT BEDSIDE
[2020-05-16] MEDS ORDERED: MORPHINE SULFATE 4 MG/ML SYR IVP ONE (11:50)
--- NOTE | 2020-05-16 12:38 | NUR ---
BACK TO BED 07 VIA DEMETRIA FROM [facility]
--- NOTE | 2020-05-16 13:58 | NUR ---
Patient discharged with v/s stable. Written and verbal after care instructions given and explained. Patient alert, oriented and verbalized understanding of instructions. Wheel Chair Assisted with LOBBY. HELPED PT CALL HIS FRIENDS, WHO WILL SHOT BAGGER PT FROM ER LOBBY. All questions addressed prior to discharge. ID band removed. Patient advised to follow up with PMD. Rx of NORCO AND MOTRIN given. Patient educated on indication of medication including possible reaction and side effects. Opportunity to ask questions provided and answered. CD IMAGES GIVEN TO PT.
[2020-05-16 14:03] VITALS: BP 144/106
== END 2020-05-16 13:58 | disposition home or self-care (01) ==
LOC: MED 11:05
DX: S22.31XA Fracture of one rib, right side, initial encounter for closed fracture (principal); E11.9 Type 2 diabetes mellitus without complications; I11.0 Hypertensive heart disease with heart failure; I50.9 Heart failure, unspecified; Z79.899 Other long term (current) drug therapy; Z79.82 Long term (current) use of aspirin; Z79.84 Long term (current) use of oral hypoglycemic drugs; W01.0XXA Fall on same level from slipping, tripping and stumbling without subsequent striking against object, initial encounter; Y93.89 Activity, other specified; Y92.89 Other specified places as the place of occurrence of the external cause; Y99.8 Other external cause status
CPT/HCPCS: 71101; 96374; 99283; J2270

== ENCOUNTER 2020-06-28 17:52 | Emergency (ER) | payer MEDICAID, SELFPAY ==
[~2020-06-28] VITALS: Ht 180.3 cm; Wt 106.6 kg
[~2020-06-28 17:52] MED LIST changes: -CARV6.25 PO; -CARV6.252 PO; -SPIR50TA PO
[2020-06-28 18:27] VITALS: BP 136/83
--- NOTE | 2020-06-28 18:36 | NUR ---
Patient ambulated to lobby.
[2020-06-28 19:30] VITALS: BP 136/83
--- NOTE | 2020-06-28 21:45 | NUR ---
EKG PERFORMED IN PHLEBOTOMY CHAIR. EKG READS JUNCTIONAL TACHYCARDIA @ 139
[2020-06-28] MEDS ORDERED: ASPIRIN 81 MG TAB.CHEW PO ONE (22:15)
[2020-06-28] MEDS ORDERED: FUROSEMIDE 40 MG TAB PO ONE (22:15)
--- NOTE | 2020-06-28 22:17 | NUR ---
CALLED FOR HIS MEDICATIONS TO ADMINISTER, NO RESPONSE. SEFERINO NOTED
--- NOTE | 2020-06-28 22:20 | NUR ---
PATIENT ELOPED FROM FACILITY. DISCHARGE INSTRUCTIONS NOT GIVEN TO PATIENT. DR. CEBALLOS NOTIFIED.
[2020-06-28 22:22] LABS: BASOPHILS # (AUTO) 0.1 K/uL (0.00-0.22); BASOPHILS % (AUTO) 0.8 % (0.0-2.0); EOSINOPHILS # (AUTO) 0.1 K/uL (0-0.4); EOSINOPHILS % (AUTO) 0.7 % (0.0-4.0); HEMATOCRIT 53.1 % (36-52); HEMOGLOBIN 17.3 g/dL (12.0-18.0); LYMPHOCYTES # (AUTO) 1.3 K/uL (2.0-11.5); LYMPHOCYTES % (AUTO) 12.8 % (20.5-51.1); MEAN CORPUSCULAR HEMOGLOBIN 31 pg (27-31); MEAN CORPUSCULAR HGB CONC 33 g/dL (33-37); MEAN CORPUSCULAR VOLUME 93.9 fL (80-94); MONOCYTES # (AUTO) 0.9 K/uL (0.8-1.0); MONOCYTES % (AUTO) 8.8 % (1.7-9.3); NEUTROPHILS # (AUTO) 7.8 K/uL (1.8-7.7); NEUTROPHILS % (AUTO) 76.9 % (42.2-75.2); PLATELET COUNT (AUTO) 218 K/uL (140-450); RED BLOOD CELL COUNT(AUTO) 5.65 MIL/uL (4.20-6.10); RED CELL DISTRIBUTION WIDTH 16.3 % (11.6-13.7); WHITE BLOOD COUNT (AUTO) 10.2 K/uL (4.8-10.8)
[2020-06-28 22:52] LABS: ALBUMIN 3.6 g/dL (3.4-5.0); ANION GAP 15.9 (8-16); CARBON DIOXIDE 24.4 mmol/L (21-32); CREATININE 1.6 mg/dL (0.6-1.3); POTASSIUM 4.3 mmol/L (3.5-5.1); TOTAL BILIRUBIN 2.2 mg/dL (0.0-1.0)
[2020-06-28 23:23] LABS: PROTHROMBIN TIME 10.7 secs (10.8-13.4)
== END 2020-06-28 22:20 | disposition home or self-care (01) ==
LOC: MED 17:52
DX: R07.89 Other chest pain (principal); I11.0 Hypertensive heart disease with heart failure; I50.9 Heart failure, unspecified; E11.65 Type 2 diabetes mellitus with hyperglycemia; N28.9 Disorder of kidney and ureter, unspecified; F15.90 Other stimulant use, unspecified, uncomplicated; J44.9 Chronic obstructive pulmonary disease, unspecified; E11.9 Type 2 diabetes mellitus without complications; E78.5 Hyperlipidemia, unspecified; Z79.84 Long term (current) use of oral hypoglycemic drugs; Z79.82 Long term (current) use of aspirin; Z79.899 Other long term (current) drug therapy
CPT/HCPCS: 36415; 71045; 80053; 83880; 84484; 85025; 85610; 85730; 99285

== ENCOUNTER 2020-09-10 15:32 | Inpatient (IN) | payer MEDICAID, SELFPAY ==
[~2020-09-10] VITALS: Ht 182.9 cm; Wt 103.0 kg
[~2020-09-10 15:32] MED LIST changes: -LISI-424 PO; +LISI-648 PO
--- NOTE | 2020-09-10 15:50 | NUR ---
PT AMBULATED TO BED 10.
[2020-09-10 15:53] VITALS: BP 177/110
--- NOTE | 2020-09-10 16:00 | NUR ---
50 Y/O MALE BIB SELF C/O SOB X 1 WEEK. SPO2 96% RA, BREATHING LABORED, SYMMETRICAL CHEST EXPANSION, CLEAR LUNG SOUNDS HEARD THROUGHOUT. STATES HE HAS NOT TAKEN MEDICATIONS TO TREAT MEDICAL CONDITIONS X 1 MONTH DUE TO NEED TO REFILL. AO4, SKIN WARM AND DRY. BED IN LOWEST POSITION, LOCKED, X1 SIDERAIL UP. PMH - CHF, HTN, HDL NKA
--- NOTE | 2020-09-10 16:02 | NUR ---
BP 178/122, HR 126. SEFERINO BENNETT MADE AWARE
[2020-09-10 16:15] LABS: BASOPHILS # (AUTO) 0.1 K/uL (0.00-0.22); BASOPHILS % (AUTO) 0.7 % (0.0-2.0); EOSINOPHILS # (AUTO) 0.1 K/uL (0-0.4); EOSINOPHILS % (AUTO) 1.5 % (0.0-4.0); HEMATOCRIT 51.5 % (36-52); HEMOGLOBIN 17.1 g/dL (12.0-18.0); LYMPHOCYTES # (AUTO) 1.4 K/uL (2.0-11.5); LYMPHOCYTES % (AUTO) 16.5 % (20.5-51.1); MEAN CORPUSCULAR HEMOGLOBIN 31 pg (27-31); MEAN CORPUSCULAR HGB CONC 33 g/dL (33-37); MEAN CORPUSCULAR VOLUME 93.1 fL (80-94); MONOCYTES % (AUTO) 11.4 % (1.7-9.3); NEUTROPHILS # (AUTO) 5.9 K/uL (1.8-7.7); NEUTROPHILS % (AUTO) 69.9 % (42.2-75.2); PLATELET COUNT (AUTO) 246 K/uL (140-450); RED BLOOD CELL COUNT(AUTO) 5.53 MIL/uL (4.20-6.10); WHITE BLOOD COUNT (AUTO) 8.4 K/uL (4.8-10.8)
[2020-09-10] MEDS ORDERED: FUROSEMIDE 40 MG/4 ML VIAL IVP ONE (16:35)
--- NOTE | 2020-09-10 16:42 | NUR ---
wiliam covid swab obtained and given to marcial in lab
[2020-09-10 16:45] LABS: ALBUMIN 3.3 g/dL (3.4-5.0); ANION GAP 13.1 (8-16); CARBON DIOXIDE 27.3 mmol/L (21-32); CREATININE 1.3 mg/dL (0.6-1.3); POTASSIUM 4.4 mmol/L (3.5-5.1)
--- NOTE | 2020-09-10 17:05 | NUR ---
TROPONIN 0.074--CRITICAL VALUE RECEIVED FROM LAB. DR BENNETT MADE AWARE.
[2020-09-10] MEDS ORDERED: ONDANSETRON 4 MG/2 ML VIAL IVP PRN (19:10)
[2020-09-10] MEDS ORDERED: HYDROcodone/APAP 7.5/325 MG 1 TAB PO PRN ×2 (19:10→23:15)
[2020-09-10] MEDS ORDERED: DOCUSATE SODIUM 100 MG GELCAP PO PRN ×2 (19:10→23:15)
--- NOTE | 2020-09-10 19:14 | NUR ---
RECEIVED REPORT FROM JOSHUA LYON FOR CONTINUITY OF CARE
--- NOTE | 2020-09-10 19:40 | NUR ---
ENDORSEMENT GIVEN TO JOSHUA ALVAREZ FOR CONTINUATION OF CARE
[2020-09-10] MEDS ORDERED: IRBE300T26 PO (20:02)
--- NOTE | 2020-09-10 20:40 | NUR ---
Patient will be admitted to care of DR. AGUDELO. Admited to TELEMETRY. Will go to room 119B. Belongings list completed. Report to JOSHUA PORTER.
[2020-09-10 20:50] VITALS: BP 150/88
--- NOTE | 2020-09-10 20:50 | NUR ---
RECEIVED PT AAOX4 , FROM ER / [facility] , WALKS TO BED . NID - O2 SAT WNL ON O2 AT 2LPM/ NC , DENIES ANY PAIN , ON TELE MONITOR . IV SITE INTACT AND PATENT . ADM . ASSESSMENT - DONE . PLAN OF CARE DISCUSSED AND VERBALIZED UNDERSTANDING . SAFETY MEASURES IN PLACE . WILL CONT. TO MONITOR .
[2020-09-10] MEDS ORDERED: ONDANSETRON 4 MG/2 ML VIAL IM/IVP PRN (23:15)
[2020-09-10] MEDS ORDERED: POTASSIUM CHLORIDE 10 MEQ TABER PO PRN (23:15)
[2020-09-10] MEDS ORDERED: ACETAMINOPHEN 325 MG TAB PO PRN (23:15)
[2020-09-10 23:50] LABS: CHOL/HDL RATIO 4.2 (1-4.5); FREE T4 (FREE THYROXINE) 0.92 ng/dL (0.76-1.46); MAGNESIUM 1.9 mg/dL (1.8-2.4); PHOSPHORUS 4.5 mg/dL (2.5-4.9); THYROID STIMULATING HORMONE 3.54 uIU/mL (0.34-3.74)
[2020-09-11] VITALS: BP 160/65
[2020-09-11] MEDS ORDERED: ACETAMINOPHEN 325 MG TAB PO PRN
--- NOTE | 2020-09-11 | NUR ---
MADE ROUNDS , NO S/X OF ACUTE DISTRESS NOTED . CALL LIGHT WITHIN REACH .
[2020-09-11 04:00] VITALS: BP 142/97
--- NOTE | 2020-09-11 04:00 | NUR ---
O2 SAT WNL . NO S/X OF ACUTE DISTRESS NOTED . WILL CONT. TO MONITOR .
--- NOTE | 2020-09-11 06:54 | NUR ---
NO COMPLAIN MADE . RESTING ON BED . WILL CONT. TO MONITOR .
[2020-09-11 07:10] LABS: BASOPHILS # (AUTO) 0.1 K/uL (0.00-0.22); BASOPHILS % (AUTO) 0.8 % (0.0-2.0); EOSINOPHILS # (AUTO) 0.1 K/uL (0-0.4); EOSINOPHILS % (AUTO) 1.5 % (0.0-4.0); HEMATOCRIT 50.1 % (36-52); HEMOGLOBIN 16.5 g/dL (12.0-18.0); LYMPHOCYTES # (AUTO) 1.5 K/uL (2.0-11.5); LYMPHOCYTES % (AUTO) 18.6 % (20.5-51.1); MEAN CORPUSCULAR HEMOGLOBIN 31 pg (27-31); MEAN CORPUSCULAR HGB CONC 33 g/dL (33-37); MEAN CORPUSCULAR VOLUME 92.9 fL (80-94); MONOCYTES # (AUTO) 0.8 K/uL (0.8-1.0); NEUTROPHILS # (AUTO) 5.4 K/uL (1.8-7.7); NEUTROPHILS % (AUTO) 69.1 % (42.2-75.2); PLATELET COUNT (AUTO) 237 K/uL (140-450); RED BLOOD CELL COUNT(AUTO) 5.39 MIL/uL (4.20-6.10); RED CELL DISTRIBUTION WIDTH 16.2 % (11.6-13.7); WHITE BLOOD COUNT (AUTO) 7.8 K/uL (4.8-10.8)
[2020-09-11 07:24] LABS: ANION GAP 10.2 (8-16); CREATININE 1.2 mg/dL (0.6-1.3); POTASSIUM 4.2 mmol/L (3.5-5.1)
--- NOTE | 2020-09-11 07:40 | NUR ---
ENDORSED- PT - STABLE .
[2020-09-11 08:00] VITALS: BP 151/111
--- NOTE | 2020-09-11 08:03 | NUR ---
PATIENT HAS BEEN SCREENED AND CATEGORIZED MODERATE NUTRITION RISK. PATIENT WILL BE SEEN WITHIN 3-5 DAYS OF ADMISSION. 09/13/[address]
[2020-09-11] MEDS: FUROSEMIDE 40 MG/4 ML VIAL IVP SCH (08:40)
[2020-09-11] MEDS: ASPIRIN 81 MG TAB.CHEW PO SCH (08:42)
--- NOTE | 2020-09-11 08:50 | NUR ---
SCHEDULED MEDICATIONS DUE GIVEN. WILL CONTINUE TO MONITOR.
[2020-09-11 12:00] VITALS: BP 141/93
--- NOTE | 2020-09-11 12:00 | NUR ---
PATIENT SITTING IN BED EATING LUNCH. CONDITION UNCHANGED. NO DISTRESS NOTED. WILL CONTINUE TO MONITOR.
--- NOTE | 2020-09-11 15:00 | NUR ---
PATIENT LYING DOWN IN BED SLEEPING, AROUSABLE BY VOICE. NO DISTRESS NOTED. CONDITION UNCHANGED. WILL CONTINUE TO MONITOR.
[2020-09-11 16:00] VITALS: BP 157/109
[2020-09-11] MEDS ORDERED: CARV6.252 PO (17:33)
[2020-09-11] MEDS ORDERED: IRBESARTAN 150 MG PO SCH (17:55)
[2020-09-11] MEDS: carvediloL 6.25 MG TAB PO SCH (18:19)
--- NOTE | 2020-09-11 18:20 | NUR ---
SCHEDULED MEDICATIONS DUE GIVEN. WILL CONTINUE TO MONITOR.
--- NOTE | 2020-09-11 19:00 | NUR ---
PATIENT RECEIVED IN BED, AAOX4 IN BED. O2 SAT 96% ON O2 AT 4LPM/ NC , DENIES ANY PAIN , ON TELE MONITOR . 20G IV TO RIGHT ARM PATENT AND INTACT. CARDIAC SR. RESPIRATIONS EVEN AND NONLABORED. ACYANOTIC. SKIN INTACT WARM AND DRY TO TOUCH. DISCUSSED WITH PATIENT RN PLAN OF CARE, MEDICATION REGIMEN, FALL AND SAFETY INTERVENTIONS AND ONGOING MEDICAL CARE. PATIENT AWAITING CARDIO CONSULT WITH DR. ARRIAGA. SINUS RHYTHM, SINUS TACH. HR 98. NO COMPLAINT OF PAIN, SELF REPOSITIONS FOR COMFORT. CALL LIGHT PLACED WITHIN REACH. NO ACUTE DISTRESS NOTED.
--- NOTE | 2020-09-11 19:27 | NUR ---
GAVE REPORT TO VP SECURITIES NURSE FOR CONTINUITY OF CARE. PATIENT IN STABLE CONDITION.
[2020-09-11 20:00] VITALS: BP 142/88
[2020-09-11] MEDS: ATORVASTATIN 20 MG TAB PO SCH (22:17)
[2020-09-11] MEDS: SPIRONOLACTONE 25 MG TAB PO SCH (22:17)
[2020-09-12] VITALS: BP 140/86
--- NOTE | 2020-09-12 | NUR ---
PATIENT IN BED SLEEPING DURING ROUNDING, AROUSABLE BY VOICE. PT EDUCATED TO FALL AND SAFETY PRECAUTIONARY MEASURES. NO DISTRESS NOTED. CONDITION UNCHANGED. VITAL SIGNS STABLE. RESPIRATIONS EVEN AND NONLABORED. NO ACUTE DISTRESS NOTED.
[2020-09-12 04:00] VITALS: BP 136/86
--- NOTE | 2020-09-12 07:10 | NUR ---
PT RECEIVED FROM COIL TIER RN. PT IS RESTING IN BED. EYES CLOSED EASY TO AROUSE. NO S/S OF DISTRESS. ALL SAFETY MEASURES ARE IN PLACE. CALL LIGHT IS WITHIN REACH. PT IS ABLE TO MAKE NEEDS KNOWN. WILL CONTINUE TO MONITOR.
[2020-09-12 07:13] LABS: ANION GAP 11.7 (8-16); BASOPHILS # (AUTO) 0.1 K/uL (0.00-0.22); BASOPHILS % (AUTO) 0.9 % (0.0-2.0); CARBON DIOXIDE 27.5 mmol/L (21-32); CREATININE 1.1 mg/dL (0.6-1.3); EOSINOPHILS # (AUTO) 0.1 K/uL (0-0.4); EOSINOPHILS % (AUTO) 1.8 % (0.0-4.0); HEMATOCRIT 49.6 % (36-52); HEMOGLOBIN 16.5 g/dL (12.0-18.0); LYMPHOCYTES # (AUTO) 1.6 K/uL (2.0-11.5); LYMPHOCYTES % (AUTO) 20.2 % (20.5-51.1); MEAN CORPUSCULAR HEMOGLOBIN 31 pg (27-31); MEAN CORPUSCULAR HGB CONC 33 g/dL (33-37); MEAN CORPUSCULAR VOLUME 93.1 fL (80-94); MONOCYTES # (AUTO) 0.8 K/uL (0.8-1.0); MONOCYTES % (AUTO) 10.6 % (1.7-9.3); NEUTROPHILS # (AUTO) 5.1 K/uL (1.8-7.7); NEUTROPHILS % (AUTO) 66.5 % (42.2-75.2); PLATELET COUNT (AUTO) 264 K/uL (140-450); POTASSIUM 4.2 mmol/L (3.5-5.1); RED BLOOD CELL COUNT(AUTO) 5.33 MIL/uL (4.20-6.10); RED CELL DISTRIBUTION WIDTH 15.9 % (11.6-13.7); WHITE BLOOD COUNT (AUTO) 7.7 K/uL (4.8-10.8)
[2020-09-12 08:06] LABS: T4 (THYROXINE) 5.4 ug/dL (4.5-12.0)
[2020-09-12] MEDS: LOSARTAN 50 MG TAB PO SCH (09:06)
[2020-09-12] MEDS: ASPIRIN 81 MG TAB.CHEW PO SCH (09:06)
[2020-09-12] MEDS: SPIRONOLACTONE 25 MG TAB PO SCH ×2 (09:06→21:39)
[2020-09-12] MEDS: carvediloL 6.25 MG TAB PO SCH ×2 (09:07→21:39)
[2020-09-12] MEDS: FUROSEMIDE 40 MG/4 ML VIAL IVP SCH (09:07)
--- NOTE | 2020-09-12 09:30 | NUR ---
MEDICATIONS GIVEN PER MD ORDER. PT EDUCATED. VERBALIZED UNDERSTANDING. REINFORCEMENT NEEDED.NO S/S OF DISTRESS. ALL SAFETY MEASURES ARE IN PLACE. CALL LIGHT IS WITHIN REACH. PT IS ABLE TO MAKE NEEDS KNOWN. WILL CONTINUE TO MONITOR.
[2020-09-12 10:00] VITALS: BP 141/78
--- NOTE | 2020-09-12 11:15 | NUR ---
PT MOANING AND SCREAMING BECAUSE OF RIGHT LOWER ABDOMEN PAIN AFTER URINATING. PT DEMANDED NORCO. AFTER TAKING HIM MEDICATION PT SAID PAIN WAS RELIEVED AND NO LONGER NEEDED MEDICATION.PT IS RESTING IN BED. EYES OPEN. NO S/S OF DISTRESS. ALL SAFETY MEASURES ARE IN PLACE. CALL LIGHT IS WITHIN REACH. PT IS ABLE TO MAKE NEEDS KNOWN. WILL CONTINUE TO MONITOR.
[2020-09-12 12:00] VITALS: BP 137/81
--- NOTE | 2020-09-12 12:59 | NUR ---
PT IS RESTING IN BED. EYES CLOSED EASY TO AROUSE. NO S/S OF DISTRESS. ALL SAFETY MEASURES ARE IN PLACE. CALL LIGHT IS WITHIN REACH. PT IS ABLE TO MAKE NEEDS KNOWN. WILL CONTINUE TO MONITOR.
--- NOTE | 2020-09-12 15:39 | NUR ---
PT IS EATING SNACK WHILE SITTING ON EDGE OF BED. NO S/S OF DISTRESS. ALL SAFETY MEASURES ARE IN PLACE. CALL LIGHT IS WITHIN REACH. PT IS ABLE TO MAKE NEEDS KNOWN. WILL CONTINUE TO MONITOR.
[2020-09-12 16:00] VITALS: BP 137/82
--- NOTE | 2020-09-12 17:33 | NUR ---
PT IS RESTING IN BED. EYES OPEN. NO S/S OF DISTRESS. ALL SAFETY MEASURES ARE IN PLACE. CALL LIGHT IS WITHIN REACH. PT IS ABLE TO MAKE NEEDS KNOWN. WILL CONTINUE TO MONITOR.
--- NOTE | 2020-09-12 19:00 | NUR ---
PATIENT RECEIVED IN BED, AAOX4 IN BED. O2 SAT 96% ON O2 AT 4LPM/ NC , DENIES ANY PAIN , ON TELE MONITOR . 22G IV TO RIGHT ARM PATENT AND INTACT. CARDIAC SR. RESPIRATIONS EVEN AND NONLABORED. ACYANOTIC. SKIN INTACT WARM AND DRY TO TOUCH. DISCUSSED WITH PATIENT RN PLAN OF CARE, MEDICATION REGIMEN, FALL AND SAFETY INTERVENTIONS AND ONGOING MEDICAL CARE. PATIENT SINUS RHYTHM, SINUS TACH. HR 95. NO COMPLAINT OF PAIN, SELF REPOSITIONS FOR COMFORT. CALL LIGHT PLACED WITHIN REACH. NO ACUTE DISTRESS NOTED.
--- NOTE | 2020-09-12 19:27 | NUR ---
PT ENDORSED TO CLOCK AND WATCH HANDS DIPPER RN FOR CONTINUITY OF CARE. PT IS STABLE
[2020-09-12 20:00] VITALS: BP 130/78
[2020-09-12] MEDS: ATORVASTATIN 20 MG TAB PO SCH (21:38)
[2020-09-13] VITALS: BP 134/74
[2020-09-13 04:00] VITALS: BP 140/80
--- NOTE | 2020-09-13 04:47 | NUR ---
PATIENT IN BED SLEEPING DURING ROUNDING, AROUSABLE BY VOICE. RESPIRATIONS EVEN AND NONLABORED. NO DISTRESS NOTED. VITAL SIGNS STABLE. NO ACUTE DISTRESS NOTED. FALL AND SAFETY PRECAUTIONARY MEASURES ONGOING.
[2020-09-13 05:28] LABS: BASOPHILS # (AUTO) 0.1 K/uL (0.00-0.22); BASOPHILS % (AUTO) 1.7 % (0.0-2.0); EOSINOPHILS # (AUTO) 0.2 K/uL (0-0.4); EOSINOPHILS % (AUTO) 1.9 % (0.0-4.0); HEMATOCRIT 50.4 % (36-52); HEMOGLOBIN 16.8 g/dL (12.0-18.0); LYMPHOCYTES # (AUTO) 1.9 K/uL (2.0-11.5); LYMPHOCYTES % (AUTO) 23.7 % (20.5-51.1); MEAN CORPUSCULAR HEMOGLOBIN 31 pg (27-31); MEAN CORPUSCULAR HGB CONC 33 g/dL (33-37); MEAN CORPUSCULAR VOLUME 93.6 fL (80-94); MONOCYTES # (AUTO) 0.8 K/uL (0.8-1.0); MONOCYTES % (AUTO) 10.4 % (1.7-9.3); NEUTROPHILS # (AUTO) 5.1 K/uL (1.8-7.7); NEUTROPHILS % (AUTO) 62.3 % (42.2-75.2); PLATELET COUNT (AUTO) 266 K/uL (140-450); RED BLOOD CELL COUNT(AUTO) 5.38 MIL/uL (4.20-6.10); RED CELL DISTRIBUTION WIDTH 15.2 % (11.6-13.7); WHITE BLOOD COUNT (AUTO) 8.1 K/uL (4.8-10.8)
[2020-09-13 05:30] LABS: ANION GAP 11.4 (8-16); CARBON DIOXIDE 27.8 mmol/L (21-32); CREATININE 1.3 mg/dL (0.6-1.3); POTASSIUM 4.2 mmol/L (3.5-5.1)
[2020-09-13 08:00] VITALS: BP 129/78
[2020-09-13] MEDS: carvediloL 6.25 MG TAB PO SCH (09:42)
[2020-09-13] MEDS: SPIRONOLACTONE 25 MG TAB PO SCH (09:43)
[2020-09-13] MEDS: ASPIRIN 81 MG TAB.CHEW PO SCH (09:43)
[2020-09-13] MEDS: FUROSEMIDE 40 MG/4 ML VIAL IVP SCH (09:43)
[2020-09-13] MEDS: LOSARTAN 50 MG TAB PO SCH (09:43)
--- NOTE | 2020-09-13 12:09 | NUR ---
Patient awake, alert and oriented. Able to verbalize needs. Vital signs stable, denies pain and lung sounds clear. Safety co measures in place and patient has no further needs.
[2020-09-13 12:11] VITALS: BP 129/78
[2020-09-13 12:35] LABS: APPEARANCE,URINE CLEAR (CLEAR); BILIRUBIN,URINE NEGATIVE (NEGATIVE); BLOOD, URINE NEGATIVE (NEGATIVE); COLOR,URINE YELLOW (YELLOW); LEUKOCYTE ESTERASE ,URINE NEGATIVE (NEGATIVE); NITRITE, URINE NEGATIVE (NEGATIVE); PH,URINE 7.5 (5.0-9.0); UGLUCOSE NEGATIVE (NEGATIVE)
[2020-09-13 13:05] LABS: BARBITURATE, URINE NEGATIVE ng/ml (NEG <=200); BENZODIAZEPINE, URINE NEGATIVE ng/mL (NEG <=200); CANNABINOID, URINE NEGATIVE ng/mL (NEG <=50); COCAINE, URINE NEGATIVE ng/mL (NEG <=300); OPIATE, URINE NEGATIVE ng/mL (NEG <=2000); PHENCYCLIDINE SCREEN,URINE NEGATIVE ng/mL (NEG <=25)
--- NOTE | 2020-09-13 13:22 | NUR ---
SOCIAL WORK NOTE: PATIENT REFUSED TO COMPLETE ASSESSMENT WITH SW WHEN SW MET PATIENT AT BEDSIDE. SW WILL FOLLOW UP.
--- NOTE | 2020-09-13 13:33 | NUR ---
EBONY DIAZ: CALLED TO SCHEDULE PATIENT AN APPOINTMENT AT [facility] [phone] THEY STATED THAT THEIR NURSE WILL CALL PATIENT TO SCHEDULE AN APPOINTMENT BECAUSE IT IS HIS FIRST VISIT.
[2020-09-13 14:00] VITALS: BP 127/66
--- NOTE | 2020-09-13 16:07 | NUR ---
Patient discharged and was given education on medications, disease process and prescriptions. Denied pain, no shortness of breath and was taken off the unit by project assistant.
== END 2020-09-13 13:55 | disposition home or self-care (01) | DRG 194 ==
LOC: MED 15:32 → MTU 19:17
PROVIDERS: ADMIT Emergency Medicine; ATTEND Emergency Medicine
DX: I11.0 Hypertensive heart disease with heart failure (principal); I50.43 Acute on chronic combined systolic (congestive) and diastolic (congestive) heart failure; Z20.822 Contact with and (suspected) exposure to COVID-19; J44.9 Chronic obstructive pulmonary disease, unspecified; I25.10 Atherosclerotic heart disease of native coronary artery without angina pectoris; E11.9 Type 2 diabetes mellitus without complications; E78.5 Hyperlipidemia, unspecified; I42.9 Cardiomyopathy, unspecified; R65.10 Systemic inflammatory response syndrome (SIRS) of non-infectious origin without acute organ dysfunction; I07.1 Rheumatic tricuspid insufficiency; F15.10 Other stimulant abuse, uncomplicated; G47.33 Obstructive sleep apnea (adult) (pediatric); I25.2 Old myocardial infarction; Z79.4 Long term (current) use of insulin; Z79.82 Long term (current) use of aspirin; Z79.899 Other long term (current) drug therapy; Z91.14 Patient's other noncompliance with medication regimen; E44.1 Mild protein-calorie malnutrition
CPT/HCPCS: 36415; 71045; 80048; 80053; 80305; 81003; 83036; 83735; 83880; 84100; 84436; 84439; 84443; 84479; 84484; 85025; 87081; 93005; 96374; 99285; J1940

== ENCOUNTER 2020-11-16 01:35 | Inpatient (IN) | payer MEDICAID, SELFPAY ==
[~2020-11-16] VITALS: Ht 177.8 cm; Wt 108.4 kg
[~2020-11-16 01:35] MED LIST changes: +CARV6.252 PO; +IRBE300T26 PO; -LISI-648 PO
--- NOTE | 2020-11-16 01:45 | NUR ---
PT TAKEN TO BED 4
--- NOTE | 2020-11-16 01:45 | NUR ---
COVERING PRIMARY RN FOR LUNCH RELIEF. SEE COMPLETE ASSESSMENT
[2020-11-16 01:48] VITALS: BP 177/134
--- NOTE | 2020-11-16 01:50 | NUR ---
PT PLACED IN GOWN AND ON CARDIAC MONITORING. WILL CONTINUE TO OBSERVE
--- NOTE | 2020-11-16 02:00 | NUR ---
18G IV TO RT AC ESTABLISHED. BLOOD DRAWN VIA IV START
--- NOTE | 2020-11-16 02:01 | NUR ---
ORDER FOR O2 SUPPLEMENTATION NOT COMPLETED. PT CURRENT O2 SATURATION IS 97% RA.
--- NOTE | 2020-11-16 02:05 | NUR ---
EKG BEING PERFORMED AT BEDSIDE.
--- NOTE | 2020-11-16 02:08 | NUR ---
EKG PERFORMED AT BEDSIDE. EKG READS SINUS TACHYCARDIA @ 110
[2020-11-16 02:10] LABS: BASOPHILS # (AUTO) 0.3 K/uL (0.00-0.22); BASOPHILS % (AUTO) 3.2 % (0.0-2.0); EOSINOPHILS # (AUTO) 0.2 K/uL (0-0.4); HEMATOCRIT 47.6 % (36-52); HEMOGLOBIN 15.8 g/dL (12.0-18.0); LYMPHOCYTES # (AUTO) 1.6 K/uL (2.0-11.5); LYMPHOCYTES % (AUTO) 19.5 % (20.5-51.1); MEAN CORPUSCULAR HEMOGLOBIN 32 pg (27-31); MEAN CORPUSCULAR HGB CONC 33 g/dL (33-37); MEAN CORPUSCULAR VOLUME 95.5 fL (80-94); MONOCYTES # (AUTO) 0.7 K/uL (0.8-1.0); MONOCYTES % (AUTO) 8.5 % (1.7-9.3); NEUTROPHILS # (AUTO) 5.6 K/uL (1.8-7.7); NEUTROPHILS % (AUTO) 66.8 % (42.2-75.2); PLATELET COUNT (AUTO) 225 K/uL (140-450); RED BLOOD CELL COUNT(AUTO) 4.98 MIL/uL (4.20-6.10); RED CELL DISTRIBUTION WIDTH 16.4 % (11.6-13.7); WHITE BLOOD COUNT (AUTO) 8.4 K/uL (4.8-10.8)
[2020-11-16 02:46] LABS: ALBUMIN 3.3 g/dL (3.4-5.0); CREATININE 1.3 mg/dL (0.6-1.3); TOTAL BILIRUBIN 1.4 mg/dL (0.0-1.0)
[2020-11-16 02:52] LABS: ANION GAP 13.7 (8-16); POTASSIUM 3.7 mmol/L (3.5-5.1)
--- NOTE | 2020-11-16 02:59 | NUR ---
Dr. Dickson examining patient.
[2020-11-16] MEDS ORDERED: NITROGLYCERIN 0.4 MG TAB SL ONE (03:05)
[2020-11-16] MEDS ORDERED: FUROSEMIDE 40 MG/4 ML VIAL IVP ONE (03:05)
[2020-11-16] MEDS ORDERED: ASPIRIN 325 MG TAB PO ONE (03:05)
--- NOTE | 2020-11-16 04:29 | NUR ---
SEBASTIÁN SWAB COLLECTED AND SENT TO LAB
--- NOTE | 2020-11-16 05:21 | NUR ---
pt resting in bed with eyes closed. visible chest rise and fall noted. pt not in distress, no s/sx of any pain or discomfort. pt kept comfortable. safety mesures in place. will continue to monitor.
--- NOTE | 2020-11-16 06:07 | NUR ---
O2 SAT 90%, RR22. PT PLACED ON O2 3LPM NC. O2 SAT NOW 95%. HOB ELEVATED, PT NOT IN DISTRESS.
--- NOTE | 2020-11-16 07:42 | NUR ---
REPORT GIVEN TO JOSHUA MENJIVAR AT THIS TIME
[2020-11-16 08:03] VITALS: BP 161/110
--- NOTE | 2020-11-16 08:05 | NUR ---
PRIOR TO PATIENT ARRIVAL, RECEIVED REPORT FROM ED NURSE. PT RESTING IN BED. ABLE TO MAKE SOME NEEDS KNOWN. RESPIRATIONS EVEN AND UNLABORED WITH NO SOB OR RESPIRATORY DISTRESS. PT ON 3L NC. SKIN WARM AND DRY TO TOUCH. IV SITE IN RAC 18G IS CLEAN, DRY, AND INTACT. MRSA SWAB COLLECTED AND SENT TO LAB. PT SR-ST ON MONITOR. SAFETY MEASURES IN PLACE. WILL CONTINUE TO MONITOR
--- NOTE | 2020-11-16 08:06 | NUR ---
Patient will be admitted to care of DR GARVIN. Admited to TELE. Will go to room 112A. Belongings list completed. Report to JOSHUA MENJIVAR.
--- NOTE | 2020-11-16 08:58 | NUR ---
PATIENT HAS BEEN SCREENED AND CATEGORIZED MODERATE NUTRITION RISK. PATIENT WILL BE SEEN WITHIN 3-5 DAYS OF ADMISSION. 11/18/20 11/20/[address]
[2020-11-16] MEDS ORDERED: ATORVASTATIN 20 MG TAB PO SCH (09:00)
[2020-11-16] MEDS ORDERED: carvediloL 3.125 MG TAB PO SCH (09:00)
[2020-11-16] MEDS ORDERED: FUROSEMIDE 40 MG/4 ML VIAL IVP SCH (09:00)
[2020-11-16] MEDS: ASPIRIN 81 MG TAB.CHEW PO SCH (09:28)
[2020-11-16] MEDS ORDERED: POTASSIUM CHLORIDE 10 MEQ TABER PO PRN (09:30)
[2020-11-16] MEDS ORDERED: MAG SULF 2000 MG/WATER PREMIX 50 ML IV PRN (09:30)
[2020-11-16] MEDS: FUROSEMIDE 40 MG/4 ML VIAL IVP SCH ×2 (09:30→16:45)
[2020-11-16] MEDS: lisinopriL 5 MG TAB PO SCH (09:31)
--- NOTE | 2020-11-16 09:37 | NUR ---
ADMINISTERED SCHED MED PRESCRIBED PER MD ORDER. PT TOLERATED WELL. MEDICATION EDUCATION PERFORMED. PT VERBALIZED UNDERSTANDING. SAFETY MEASURES IN PLACE. WILL CONTINUE TO MONITOR
[2020-11-16] MEDS ORDERED: LORazepam 2 MG/ML VIAL IM/IVP PRN (10:10)
[2020-11-16] MEDS ORDERED: DOCUSATE SODIUM 100 MG GELCAP PO PRN (10:10)
[2020-11-16] MEDS ORDERED: ZOLPIDEM 5 MG TAB PO PRN (10:10)
[2020-11-16] MEDS ORDERED: HYDROcodone/APAP 5/325 MG 1 TAB TAB PO PRN (10:10)
[2020-11-16] MEDS ORDERED: ACETAMINOPHEN 325 MG TAB PO PRN (10:10)
[2020-11-16] MEDS ORDERED: ONDANSETRON 4 MG/2 ML VIAL IM/IVP PRN (10:10)
[2020-11-16] MEDS ORDERED: MORPHINE SULFATE 2 MG/ML SYR IVP PRN (10:10)
[2020-11-16 10:37] LABS: BASOPHILS # (AUTO) 0.1 K/uL (0.00-0.22); BASOPHILS % (AUTO) 1.1 % (0.0-2.0); EOSINOPHILS # (AUTO) 0.1 K/uL (0-0.4); EOSINOPHILS % (AUTO) 1.3 % (0.0-4.0); HEMATOCRIT 46.8 % (36-52); HEMOGLOBIN 15.7 g/dL (12.0-18.0); LYMPHOCYTES # (AUTO) 1.3 K/uL (2.0-11.5); MEAN CORPUSCULAR HEMOGLOBIN 31 pg (27-31); MEAN CORPUSCULAR HGB CONC 34 g/dL (33-37); MEAN CORPUSCULAR VOLUME 93.6 fL (80-94); MONOCYTES # (AUTO) 0.6 K/uL (0.8-1.0); MONOCYTES % (AUTO) 8.6 % (1.7-9.3); NEUTROPHILS # (AUTO) 4.9 K/uL (1.8-7.7); PLATELET COUNT (AUTO) 215 K/uL (140-450); WHITE BLOOD COUNT (AUTO) 7.1 K/uL (4.8-10.8)
[2020-11-16 10:48] LABS: PROTHROMBIN TIME 10.8 secs (10.8-13.4)
[2020-11-16 10:55] LABS: MAGNESIUM 1.8 mg/dL (1.8-2.4); PHOSPHORUS 3.1 mg/dL (2.5-4.9); THYROID STIMULATING HORMONE 1.58 uIU/mL (0.34-3.74)
--- NOTE | 2020-11-16 11:04 | NUR ---
PT RESTING IN BED. ABLE TO MAKE NEEDS KNOWN. RESPIRATIONS EVEN AND UNLABORED WITH NO SOB OR RESPIRATORY DISTRESS. SKIN WARM AND DRY TO TOUCH. SAFETY MEASURES IN PLACE. WILL CONTINUE TO MONITOR
[2020-11-16 12:00] VITALS: BP 126/90
[2020-11-16 12:17] LABS: APPEARANCE,URINE CLEAR (CLEAR); BILIRUBIN,URINE NEGATIVE (NEGATIVE); BLOOD, URINE NEGATIVE (NEGATIVE); COLOR,URINE YELLOW (YELLOW); LEUKOCYTE ESTERASE ,URINE NEGATIVE (NEGATIVE); NITRITE, URINE NEGATIVE (NEGATIVE); UGLUCOSE NEGATIVE (NEGATIVE)
[2020-11-16 12:40] LABS: BARBITURATE, URINE NEGATIVE ng/ml (NEG <=200); BENZODIAZEPINE, URINE NEGATIVE ng/mL (NEG <=200); CANNABINOID, URINE NEGATIVE ng/mL (NEG <=50); COCAINE, URINE NEGATIVE ng/mL (NEG <=300); OPIATE, URINE NEGATIVE ng/mL (NEG <=2000); PHENCYCLIDINE SCREEN,URINE NEGATIVE ng/mL (NEG <=25)
--- NOTE | 2020-11-16 13:15 | NUR ---
PT RESTING IN BED. ABLE TO MAKE SOME NEEDS KNOWN. RESPIRATIONS EVEN AND UNLABORED WITH NO SOB OR RESPIRATORY DISTRESS. SAFETY MEASURES IN PLACE. WILL CONTINUE TO MONITOR
--- NOTE | 2020-11-16 15:30 | NUR ---
PT SLEEPING IN BED. RESPONSIVE TO VERBAL AND TACTILE STIMULI. RESPIRATIONS EVEN AND UNLABORED WITH NO SOB OR RESPIRATORY DISTRESS. SKIN WARM AND DRY TO TOUCH. SAFETY MEASURES IN PLACE. WILL CONTINUE TO MONITOR
[2020-11-16 16:00] VITALS: BP 145/72
--- NOTE | 2020-11-16 16:50 | NUR ---
ADMINISTERED SCHED MED PRESCRIBED PER MD ORDER. PT TOLERATED WELL. MEDICATION EDUCATION PERFORMED. PT VERBALIZED UNDERSTANDING. SAFETY MEASURES IN PLACE. WILL CONTINUE TO MONITOR
--- NOTE | 2020-11-16 18:00 | NUR ---
US AT BEDSIDE. PT STABLE. WILL CONTINUE TO MONITOR
--- NOTE | 2020-11-16 19:20 | NUR ---
PATIENT ENDORSED BY DAY SHIFT FOR CONTINUITY OF CARE IN STABLE CONDITION. PATIENT ASLEEP COMFORTABLY CURRENTLY ON HIS RIGHT SIDE, CHEST RISING AND FALLING EVEN AND UNLABORED. PATIENT WAS ADMITTED FOR CHF EXACERBATION, CHEST PAIN AND ELEVATED TROPONIN. MOST RECENT TROPONIN WAS 0.056. PATIENT IS ON ROOM AIR. PATIENT IS ON TELE SHOWING SINUS RHYTHM. URINAL IS AT BEDSIDE. PATIENT HAS +2 PITTING EDEMA IN LOWER EXTREMITIES. PATIENT SKIN IS INTACT WITH A RIGHT AC 18GAUGE ON SALINE LOCK. CLEAN DRY AND INTACT. SAFETY MEASURES IN PLACE, WITH BED IN LOWEST POSITION, 2 SIDE RAILS UP AND CALL LIGHT WITHIN REACH. WILL CONTINUE TO MONITOR.
--- NOTE | 2020-11-16 19:20 | NUR ---
ENDORSED TO NIGHTSHIFT AT BEDSIDE FOR CONTINUITY OF CARE. PT IS STABLE
[2020-11-16 20:00] VITALS: BP 134/98
[2020-11-16] MEDS: SPIRONOLACTONE 25 MG TAB PO SCH (20:39)
[2020-11-16] MEDS: carvediloL 6.25 MG TAB PO SCH (20:39)
--- NOTE | 2020-11-16 20:50 | NUR ---
SCHEDULED MEDICATION ADMINISTERED. BLOOD PRESSURE 134/98. PATIENT EDUCATION PROVIDED. PATIENT VERBALIZED UNDERSTANDING. URINAL DRAINED AT 700CC. PATIENT REPORTS ALL NEEDS BEING MET AND WOULD LIKE TO SLEEP+. SAFETY MEASURES IN PLACE. CALL LIGHT WITHIN REACH. WILL CONTINUE TO MONITOR.
[2020-11-16] MEDS ORDERED: HYDROCORTISONE 1% OINT 30 GM TUBE TP SCH (21:00)
--- NOTE | 2020-11-16 21:58 | NUR ---
ROUNDED ON PATIENT. PATIENT IS ASLEEP IN BED COMFORTABLY ON HIS BACK CHEST RISING AND FALLING EVEN AND UNLABORED WITH NO ACUTE SIGNS OF DISTRESS. SAFETY MEASURES IN PLACE, CALL LIGHT WITHIN REACH. WILL CONTINUE TO MONITOR.
--- NOTE | 2020-11-16 22:51 | NUR ---
ROUNDED ON PATIENT. PATIENT IS ASLEEP IN BED COMFORTABLY ON HIS SIDE. CHEST RISING AND FALLING EVEN AND UNLABORED. SAFETY MEASURES IN PLACE, CALL LIGHT WITHIN REACH. WILL CONTINUE TO MONITOR.
[2020-11-17] VITALS: BP 119/91
--- NOTE | 2020-11-17 00:30 | NUR ---
ROUNDS DONE, PT IN BED ASLEEP NO S/S OF PAIN OR DISTRESS NOTED. ALL UNIVERSAL PRECAUTIONS IN PLACE.
--- NOTE | 2020-11-17 02:30 | NUR ---
ROUNDED ON PATIENT. PATIENT IS RESTING COMFORTABLY IN BED WITH NO ACUTE SIGNS OF DISTRESS. SAFETY MEASURES IN PLACE. CALL LIGHT WITHIN REACH. WILL CONTINUE TO MONITOR.
[2020-11-17 04:00] VITALS: BP 146/92
[2020-11-17 06:44] LABS: BASOPHILS # (AUTO) 0.1 K/uL (0.00-0.22); BASOPHILS % (AUTO) 1.2 % (0.0-2.0); EOSINOPHILS # (AUTO) 0.1 K/uL (0-0.4); EOSINOPHILS % (AUTO) 1.8 % (0.0-4.0); HEMATOCRIT 49.5 % (36-52); HEMOGLOBIN 16.5 g/dL (12.0-18.0); LYMPHOCYTES # (AUTO) 1.3 K/uL (2.0-11.5); LYMPHOCYTES % (AUTO) 18.6 % (20.5-51.1); MEAN CORPUSCULAR HEMOGLOBIN 32 pg (27-31); MEAN CORPUSCULAR HGB CONC 33 g/dL (33-37); MEAN CORPUSCULAR VOLUME 94.6 fL (80-94); MONOCYTES # (AUTO) 0.7 K/uL (0.8-1.0); MONOCYTES % (AUTO) 9.8 % (1.7-9.3); NEUTROPHILS % (AUTO) 68.6 % (42.2-75.2); PLATELET COUNT (AUTO) 243 K/uL (140-450); RED BLOOD CELL COUNT(AUTO) 5.23 MIL/uL (4.20-6.10); RED CELL DISTRIBUTION WIDTH 15.7 % (11.6-13.7); WHITE BLOOD COUNT (AUTO) 7.2 K/uL (4.8-10.8)
[2020-11-17 07:14] LABS: ANION GAP 12.1 (8-16); CARBON DIOXIDE 27.8 mmol/L (21-32); CREATININE 1.1 mg/dL (0.6-1.3); POTASSIUM 3.9 mmol/L (3.5-5.1)
[2020-11-17 07:15] LABS: MAGNESIUM 1.9 mg/dL (1.8-2.4); PHOSPHORUS 3.6 mg/dL (2.5-4.9)
--- NOTE | 2020-11-17 07:29 | NUR ---
PT ENDORSED TO DAY SHIFT FOR CONTINUITY OF CARE. POC DISCUSSED. IN STABLE CONDITION.
--- NOTE | 2020-11-17 07:30 | NUR ---
RECEIVED REPORT FROM SUPERVISOR BIT AND SHANK DEPARTMENT RN. PATIENT IS AOX4, ABLE TO MAKE NEEDS KNOWN, INDEPENDENT AND AMBULATORY. ST ON MONITOR. ON RA. CARDIAC DIET. LAST BOWEL MOVEMENT 11/16/20. IV ON RAC 18G CLEAN, DRY, AND INTACT. SKIN INTACT. +1 EDEMA. MEAT AND POULTRY INSPECTOR, PULSE OXIMETER, AND SAFETY MEASURES IN PLACE. BED IN LOW POSITION, BED LOCKED. CALL LIGHT WITHIN REACH. WILL CONTINUE TO MONITOR.
[2020-11-17 08:00] VITALS: BP 139/95
[2020-11-17] MEDS: FUROSEMIDE 40 MG/4 ML VIAL IVP SCH ×2 (08:32→17:45)
[2020-11-17] MEDS: carvediloL 6.25 MG TAB PO SCH (08:33)
[2020-11-17] MEDS: ASPIRIN 81 MG TAB.CHEW PO SCH (08:33)
[2020-11-17] MEDS: SPIRONOLACTONE 25 MG TAB PO SCH (08:33)
[2020-11-17] MEDS: lisinopriL 5 MG TAB PO SCH (08:34)
[2020-11-17] MEDS: metFORMIN 500 MG TAB PO SCH (08:34)
--- NOTE | 2020-11-17 08:35 | NUR ---
ADMINISTERED SCHEDULED AM MEDICATIONS. PATIENT AMBULATED FROM RESTROOM TO BED. WILL CONTINUE TO MONITOR.
[2020-11-17] MEDS ORDERED: LOSARTAN 50 MG TAB PO SCH (09:00)
[2020-11-17] MEDS ORDERED: IRBESARTAN 150 MG PO SCH (09:00)
[2020-11-17] MEDS ORDERED: ASPIRIN 81 MG TAB.CHEW PO SCH (09:00)
[2020-11-17] MEDS ORDERED: FUROSEMIDE 40 MG TAB PO SCH (09:00)
[2020-11-17 10:08] LABS: CHOL/HDL RATIO 3.4 (1-4.5)
--- NOTE | 2020-11-17 10:15 | NUR ---
PATIENT RESTING IN BED. NO SIGNS OF DISTRESS OR PAIN. WILL CONTINUE TO MONITOR.
[2020-11-17 12:00] VITALS: BP 131/104
--- NOTE | 2020-11-17 12:10 | NUR ---
PATIENT RESTING IN BED. NO SIGNS OF DISTRESS OR PAIN. WILL CONTINUE TO MONITOR.
--- NOTE | 2020-11-17 14:50 | NUR ---
PATIENT RESTING IN BED. NO SIGNS OF DISTRESS OR PAIN. EMPTIED URINAL 600 ML, YELLOW CLEAR URINE. WILL CONTINUE TO MONITOR.
[2020-11-17 16:00] VITALS: BP 125/87
--- NOTE | 2020-11-17 16:00 | NUR ---
CHECKED ON PATIENT. NO SIGN OF DISTRESS OR PAIN. WILL CONTINUE TO MONITOR.
--- NOTE | 2020-11-17 16:23 | NUR ---
Social Service Note: SHOE LAY OUT PLANNER met with pt at bedside; pt appears alert and oriented x4; pt was cooperative with assessment. Pt states that he has been homeless for about 1 year. Pt states that he stays in his truck. Pt reports that 1-2 times a week pt will stay in a motel to be able to shower. Pt states that he is currently receiving unemployment. Pt states that his plan is to return to his truck upon discharge. Pt states that his truck is in the parking lot. Pt denied any drug/alcohol use; SHOE LAY OUT PLANNER inquired further due to pt's documented history of meth use; pt states that he wants to stop using; pt states that he knows "it will kill me if I keep using it". SHOE LAY OUT PLANNER offered substance abuse treatment resources; pt declined, pt stated he knows what he needs to do. SHOE LAY OUT PLANNER offered homeless resources; pt declined. SHOE LAY OUT PLANNER will remain available for support and will follow up as needs arise.
--- NOTE | 2020-11-17 17:55 | NUR ---
PATIENT REQUESTING SNACK, GAVE CAMILA ANDERSON. WILL CONTINUE TO MONITOR.
--- NOTE | 2020-11-17 19:33 | NUR ---
REPORT GIVEN TO ERIC RN FOR CONTINUITY OF CARE.
[2020-11-17 20:00] VITALS: BP 130/73
--- NOTE | 2020-11-17 20:00 | NUR ---
RECEIVED BEDSIDE REPORT FROM DAY RN REGARDING THE PATIENT FOR CONTINUITY OF CARE. RECEIVED PATIENT ASLEEP DURING ROUNDS BUT EASY TO AROUSED. PATIENT NOT IN ANY DISTRESS AND NO COMPLAIN AT THIS TIME. DENIES ANY CHEST PAIN, DIZZINESS, SOB AND PALPITATIONS. VSS, AFEBRILE, SATING 96% ON RA. SINUS TACHYCARDIA ON TELE MONITOR, HR-105. CALL LIGHT WITHIN REACH. WILL CONTINUE POC AND MONITORING.
[2020-11-17] MEDS ORDERED: ATORVASTATIN 20 MG TAB PO SCH (21:00)
[2020-11-17] MEDS: lisinopriL 20 MG TAB PO SCH (21:15)
[2020-11-17] MEDS: carvediloL 12.5 MG TAB PO SCH (21:16)
--- NOTE | 2020-11-17 22:00 | NUR ---
ADMINISTERED ALL THE SCHEDULED MEDICATIONS ORDERED AND PATIENT TOLERATED IT WELL. NO ADVERSE DRUG REACTIONS NOTED. NO COMPLAIN FROM THE PATIENT.
[2020-11-18] VITALS: BP 119/78
--- NOTE | 2020-11-18 | NUR ---
VITAL SIGNS STABLE, AFEBRILE, SATING 94% ON RA. NO COMPLAIN OF PAIN AT THIS TIME. CALL LIGHT WITHIN REACH.
--- NOTE | 2020-11-18 02:00 | NUR ---
PATIENT ASLEEP AT THIS TIME . VISIBLE CHEST RISE AND FALL NOTED. NOT IN ANY DISTRESS. SAFETY MEASURE IN PLACED.
[2020-11-18 04:00] VITALS: BP 121/68
--- NOTE | 2020-11-18 04:00 | NUR ---
PATIENT VITAL SIGNS STABLE, AFEBRILE, SATING 95% ON RA. NOT IN ANY DISTRESS. NO COMPLAIN AT THIS TIME. CALL LIGHT WITHIN REACH.
[2020-11-18 06:20] LABS: BASOPHILS # (AUTO) 0.1 K/uL (0.00-0.22); BASOPHILS % (AUTO) 1.1 % (0.0-2.0); EOSINOPHILS # (AUTO) 0.1 K/uL (0-0.4); EOSINOPHILS % (AUTO) 1.7 % (0.0-4.0); HEMATOCRIT 50.9 % (36-52); HEMOGLOBIN 17.1 g/dL (12.0-18.0); LYMPHOCYTES # (AUTO) 1.4 K/uL (2.0-11.5); LYMPHOCYTES % (AUTO) 17.5 % (20.5-51.1); MEAN CORPUSCULAR HEMOGLOBIN 31 pg (27-31); MEAN CORPUSCULAR HGB CONC 34 g/dL (33-37); MEAN CORPUSCULAR VOLUME 93.3 fL (80-94); MONOCYTES # (AUTO) 0.8 K/uL (0.8-1.0); MONOCYTES % (AUTO) 10.1 % (1.7-9.3); NEUTROPHILS # (AUTO) 5.4 K/uL (1.8-7.7); NEUTROPHILS % (AUTO) 69.6 % (42.2-75.2); PLATELET COUNT (AUTO) 246 K/uL (140-450); RED BLOOD CELL COUNT(AUTO) 5.46 MIL/uL (4.20-6.10); RED CELL DISTRIBUTION WIDTH 15.6 % (11.6-13.7); WHITE BLOOD COUNT (AUTO) 7.8 K/uL (4.8-10.8)
--- NOTE | 2020-11-18 06:36 | NUR ---
PATIENT STABLE AT THIS TIME. NOT IN ANY DISTRESS. NO COMPLAIN AT THIS TIME. ALL NEEDS ATTENDED. CALL LIGHT WITHIN REACH. WILL ENDORSE THE PATIENT TO THE ONCOMING RN FOR CONTINUITY OF CARE.
[2020-11-18 07:02] LABS: ANION GAP 10.7 (8-16); CARBON DIOXIDE 28.3 mmol/L (21-32); CREATININE 1.3 mg/dL (0.6-1.3)
--- NOTE | 2020-11-18 07:05 | NUR ---
RECEIVED REPORT FROM NIGHT NURSE PT IS AAOX4 ON ROOM AIR SATURATING AT 94-96% ON CARDIAC DIET, AMBUL;ATORY, SKIN INTACT, IV INTACT ON RIGHT AC SALINE LOCK, LAST BOWEL MOVEMENT 11/17/20. SAFETY MEASURES IN PLACE AND CALL LIGHT WITHIN REACH. WILL CONTINUE TO MONITOR.
[2020-11-18 07:14] LABS: MAGNESIUM 1.8 mg/dL (1.8-2.4); PHOSPHORUS 3.6 mg/dL (2.5-4.9)
[2020-11-18 08:00] VITALS: BP 148/92
[2020-11-18] MEDS ORDERED: SPIRONOLACTONE 25 MG TAB PO SCH (09:00)
[2020-11-18] MEDS: ASPIRIN 81 MG TAB.CHEW PO SCH (09:08)
[2020-11-18] MEDS: lisinopriL 20 MG TAB PO SCH (09:08)
[2020-11-18] MEDS: carvediloL 12.5 MG TAB PO SCH (09:08)
[2020-11-18] MEDS: metFORMIN 500 MG TAB PO SCH (09:09)
--- NOTE | 2020-11-18 09:18 | NUR ---
MEDICATION DUE GIVEN AND CHECK VITAL SIGNS PRIOR TO MEDICATION BP 148/92 WV 93. NO COMPLAINS OF CHEST PAIN. NO DISTRESS NOTED WILL CONTINUE TO MONITOR.
--- NOTE | 2020-11-18 10:23 | NUR ---
EBONY DIAZ: CALLED TO SCHEDULE A FOLLOW UP APPOINTMENT FOR PATIENT THEY STATED THEY WOULD HAVE THE NURSE CALL ME BACK WITH AN APPOINTMENT TIME. [facility] [id number], [place] [address] Addendum: 11/18/20 at 1215 by Louisa Rodney CM EBONY DIAZ: TELEPHONE APPOINTMENT TIME November AT 10:10 AM
[2020-11-18] MEDS ORDERED: FURO-570 PO (10:38)
--- NOTE | 2020-11-18 11:50 | NUR ---
DISCHARGED INSTRUCTIONS GIVEN TO PATIENT AT THE BEDSIDE AND ENCOURAGED TO CONTINUE MEDICATION AND FOLLOW UP WITH PCP WITHIN 3-5 DAYS, REMOVED ID BANDS AND IV INTACT AND COMPLETE NO BLEEDING. CHANGED PT OWN CLOTHINGS AND PT TOOK ALL HIS BELONGINGS, ESCORTED TO FRONT LOBBY VIA WHEELCHAIR PT DRIVING HIS CAR. RETURNED RADIATION TECHNICIAN TO COURT TRANSCRIBER. PT IS BEING DISCHARGED HOME PT IS STABLE.
[2020-11-18] MEDS ORDERED: FUROSEMIDE 40 MG TAB PO SCH (17:00)
== END 2020-11-18 11:50 | disposition home or self-care (01) | DRG 194 ==
LOC: MED 01:35 → MTU 04:36
DX: I11.0 Hypertensive heart disease with heart failure (principal); I21.A1 Myocardial infarction type 2; I42.9 Cardiomyopathy, unspecified; E44.1 Mild protein-calorie malnutrition; I50.43 Acute on chronic combined systolic (congestive) and diastolic (congestive) heart failure; E78.5 Hyperlipidemia, unspecified; F15.10 Other stimulant abuse, uncomplicated; Z20.822 Contact with and (suspected) exposure to COVID-19; J44.9 Chronic obstructive pulmonary disease, unspecified; I45.10 Unspecified right bundle-branch block; F17.210 Nicotine dependence, cigarettes, uncomplicated; I25.10 Atherosclerotic heart disease of native coronary artery without angina pectoris; Z68.34 Body mass index [BMI] 34.0-34.9, adult; Z71.6 Tobacco abuse counseling; Z71.51 Drug abuse counseling and surveillance of drug abuser; Z59.0 Homelessness; Z91.14 Patient's other noncompliance with medication regimen; I25.2 Old myocardial infarction
CPT/HCPCS: 36415; 71045; 76705; 80048; 80053; 80305; 81003; 82150; 83690; 83735; 83880; 84100; 84134; 84443; 84484; 85025; 85610; 85730; 87081; 93005; 96374; 99291; J1644; J1940

== ENCOUNTER 2021-06-10 00:25 | Emergency (ER) | payer MEDICAID, SELFPAY ==
[~2021-06-10] VITALS: Ht 180.3 cm; Wt 82.6 kg
[2021-06-10 00:39] VITALS: BP 145/94
--- NOTE | 2021-06-10 00:49 | NUR ---
PT TAKEN TO BED 4
--- NOTE | 2021-06-10 01:06 | NUR ---
PT ALERT AND ORIENTED X4. COMPLAINING OF BILATERAL LEG PAIN AND CHEST PAIN. PT STATES THAT CHEST PAIN STARTED ONCE HE GOT TO ED. RATES PAIN /. EKG PERFORMED BY TISHA GAY. EKG GIVEN TO MD. PT STATES THAT HE IS ALSO HERE TO GET A MEDICATION REFILL FOR HIS HTN, HIGH CHOLESTEROL, AND CHF. PT CONNECTED TO MONITORS. WILL CONTINUE TO MONITOR PT.
[2021-06-10] MEDS ORDERED: FUROSEMIDE 40 MG TAB PO ONE (01:15)
[2021-06-10] MEDS ORDERED: ATOR20TA40 PO (01:21)
[2021-06-10] MEDS ORDERED: IRBE300T26 PO (01:21)
[2021-06-10] MEDS ORDERED: FURO-570 PO (01:21)
[2021-06-10] MEDS ORDERED: ATORVASTATIN 20 MG TAB ONE (01:28)
--- NOTE | 2021-06-10 01:33 | NUR ---
PT MEDICATED WITH LIPITOR AND LASIX PER MD ORDERS. PLEASE SEE EMAR.
[2021-06-10 02:48] VITALS: BP 109/73
--- NOTE | 2021-06-10 02:50 | NUR ---
Patient discharged with v/s stable. Written and verbal after care instructions given and explained. Patient alert, oriented and verbalized understanding of instructions. Ambulatory with steady gait. All questions addressed prior to discharge. ID band removed. Patient advised to follow up with PMD. Rx of ATORVASTATIN, LASIX, IRBESARTAN given. Patient educated on indication of medication including possible reaction and side effects. Opportunity to ask questions provided and answered.
[2021-06-10] MEDS ORDERED: ATORVASTATIN 20 MG TAB PO SCH (09:00)
== END 2021-06-10 02:50 | disposition home or self-care (01) ==
LOC: MED 00:25
DX: I11.0 Hypertensive heart disease with heart failure (principal); I50.9 Heart failure, unspecified; E78.5 Hyperlipidemia, unspecified; J44.9 Chronic obstructive pulmonary disease, unspecified; I25.2 Old myocardial infarction; Z79.82 Long term (current) use of aspirin; Z79.899 Other long term (current) drug therapy
CPT/HCPCS: 99283

== ENCOUNTER 2023-06-06 20:08 | Inpatient (IN) | payer MEDICAID ==
[~2023-06-06] VITALS: Ht 180.3 cm; Wt 103.4 kg
[~2023-06-06 20:08] MED LIST changes: +METF-346 PO; -METF500T PO
[2023-06-06 20:22] VITALS: BP 139/97; PULSE 102; RESP 20; TEMP 98.5; O2SAT 95
[2023-06-06 21:37] LABS: FLU A ANTIGEN negative (NEGATIVE); FLU B ANTIGEN NEGATIVE (NEGATIVE)
[2023-06-06 22:13] LABS: BASOPHILS % (AUTO) 0.5 % (0.0-2.0); EOSINOPHILS % (AUTO) 0.2 % (0.0-4.0); HEMATOCRIT 48.6 % (36-52); HEMOGLOBIN 16.2 g/dL (12.0-18.0); LYMPHOCYTES # (AUTO) 0.3 K/uL (2.0-11.5); LYMPHOCYTES % (AUTO) 3.4 % (20.5-51.1); MEAN CORPUSCULAR HEMOGLOBIN 31 pg (27-31); MEAN CORPUSCULAR HGB CONC 33 g/dL (33-37); MEAN CORPUSCULAR VOLUME 93.1 fL (80-94); MONOCYTES # (AUTO) 1.1 K/uL (0.8-1.0); MONOCYTES % (AUTO) 12.6 % (1.7-9.3); NEUTROPHILS % (AUTO) 83.3 % (42.2-75.2); PLATELET COUNT (AUTO) 210 K/uL (140-450); RED BLOOD CELL COUNT(AUTO) 5.22 MIL/uL (4.20-6.10); RED CELL DISTRIBUTION WIDTH 15.5 % (11.6-13.7); WHITE BLOOD COUNT (AUTO) 8.4 K/uL (4.8-10.8)
[2023-06-06] MEDS ORDERED: NITROGLYCERIN 0.4 MG TAB SL ONE (22:35)
[2023-06-06] MEDS ORDERED: MORPHINE SULFATE 4 MG/ML SYR IVP ONE (22:35)
[2023-06-06] MEDS ORDERED: ONDANSETRON 4 MG/2 ML VIAL IVP ONE (22:35)
[2023-06-06] MEDS ORDERED: FUROSEMIDE 20 MG/2 ML VIAL IVP ONE (22:35)
[2023-06-06 22:43] LABS: INR 1.15 (0.8-1.2); PARTIAL THROMBOPLASTIN TIME 28.5 secs (22-35.6)
[2023-06-06 22:50] LABS: ALANINE AMINOTRANSFERASE 30 U/L (12-78); ALBUMIN 3.1 g/dL (3.4-5.0); ALKALINE PHOSPHATASE 159 U/L (50-136); ASPARTATE AMINOTRANSFERASE 39 U/L (15-37); BILIRUBIN,DIRECT 0.6 mg/dL (0.0-0.3); LIPASE 18 U/L (16-77); MAGNESIUM 1.5 mg/dL (1.8-2.4); PHOSPHORUS 3.1 mg/dL (2.5-4.9); THYROID STIMULATING HORMONE 1.62 uIU/mL (0.34-3.74); TOTAL BILIRUBIN 2.1 mg/dL (0.0-1.0); TOTAL PROTEIN, SERUM 7.1 g/dL (6.4-8.2)
[2023-06-06 22:52] LABS: ANION GAP 14.6 (8-16); CARBON DIOXIDE 26.5 mmol/L (21-32); POTASSIUM 4.1 mmol/L (3.5-5.1)
[2023-06-06 22:53] LABS: CREATININE 1.4 mg/dL (0.6-1.3)
[2023-06-06 23:53] LABS: BLOOD GAS HCO3 25.9 mmol/L (22-26); BLOOD GAS PCO2 40.7 mmHg (35-45); BLOOD GAS PH 7.421 (7.35-7.45); BLOOD GAS PO2 47.1 mmHg (75-100)
[2023-06-06 23:54] LABS: BLOOD GAS BASE EXCESS 1.3 mmol/L (-2.0-2.0); BLOOD GAS O2 SAT% 82.8 % (92.0-98.5)
[2023-06-07] VITALS (16 sets, daily range): BP systolic 91–145; BP diastolic 56–96; PULSE 90–116; RESP 20–30; TEMP 97.4–98.2; O2SAT 94–99
[2023-06-07] MEDS ORDERED: ACETAMINOPHEN 325 MG TAB PO PRN (00:50)
[2023-06-07] MEDS ORDERED: hydrALAZINE 20 MG/ML VIAL IVP PRN (00:50)
[2023-06-07] MEDS ORDERED: ONDANSETRON 4 MG/2 ML VIAL IVP PRN (00:50)
[2023-06-07] MEDS ORDERED: LEVALBUTEROL 0.63 MG/3 ML NEBU INH PRN (00:50)
[2023-06-07] MEDS ORDERED: DEXTROSE 50% 50 ML SYR IVP PRN (01:05)
[2023-06-07] MEDS ORDERED: LORazepam 1 MG TAB PO PRN (01:30)
[2023-06-07] MEDS: BLOOD GLUCOSE MONITORING 1 DEV DEV FS SCH ×4 (06:37→21:42)
[2023-06-07] MEDS: carvediloL 6.25 MG TAB PO SCH ×2 (08:58→21:00)
[2023-06-07] MEDS: ASPIRIN 81 MG TAB.CHEW PO SCH (08:59)
[2023-06-07] MEDS: SPIRONOLACTONE 25 MG TAB PO SCH ×2 (08:59→21:00)
[2023-06-07] MEDS: LOSARTAN 50 MG TAB PO SCH (08:59)
[2023-06-07] MEDS ORDERED: FUROSEMIDE 40 MG/4 ML VIAL IVP SCH (09:00)
[2023-06-07] MEDS ORDERED: IRBESARTAN 150 MG PO SCH (09:00)
[2023-06-07] MEDS: ATORVASTATIN 20 MG TAB PO SCH (21:39)
[2023-06-08] VITALS (13 sets, daily range): BP systolic 67–110; BP diastolic 33–75; PULSE 84–98; RESP 16–28; TEMP 96.3–97.4; O2SAT 90–98
[2023-06-08] MEDS: BLOOD GLUCOSE MONITORING 1 DEV DEV FS SCH ×4 (06:39→21:44)
[2023-06-08 07:06] LABS: ANION GAP 14.8 (8-16); CALCIUM 7.4 mg/dL (8.5-10.1); CARBON DIOXIDE 25.5 mmol/L (21-32); CREATININE 2.4 mg/dL (0.6-1.3); POTASSIUM 4.3 mmol/L (3.5-5.1)
[2023-06-08 07:11] LABS: BASOPHILS # (AUTO) 0.1 K/uL (0.00-0.22); BASOPHILS % (AUTO) 1.1 % (0.0-2.0); EOSINOPHILS % (AUTO) 0.2 % (0.0-4.0); HEMATOCRIT 46.3 % (36-52); LYMPHOCYTES # (AUTO) 0.8 K/uL (2.0-11.5); LYMPHOCYTES % (AUTO) 16.5 % (20.5-51.1); MEAN CORPUSCULAR HEMOGLOBIN 30 pg (27-31); MEAN CORPUSCULAR HGB CONC 32 g/dL (33-37); MEAN CORPUSCULAR VOLUME 93.7 fL (80-94); MONOCYTES # (AUTO) 0.8 K/uL (0.8-1.0); MONOCYTES % (AUTO) 15.2 % (1.7-9.3); NEUTROPHILS # (AUTO) 3.4 K/uL (1.8-7.7); PLATELET COUNT (AUTO) 187 K/uL (140-450); RED BLOOD CELL COUNT(AUTO) 4.94 MIL/uL (4.20-6.10); RED CELL DISTRIBUTION WIDTH 15.2 % (11.6-13.7); WHITE BLOOD COUNT (AUTO) 5.1 K/uL (4.8-10.8)
[2023-06-08] MEDS: FUROSEMIDE 40 MG/4 ML VIAL IVP SCH (09:00)
[2023-06-08] MEDS: carvediloL 6.25 MG TAB PO SCH ×2 (09:00→21:45)
[2023-06-08] MEDS: SPIRONOLACTONE 25 MG TAB PO SCH ×2 (10:35→21:45)
[2023-06-08] MEDS: LOSARTAN 50 MG TAB PO SCH (10:35)
[2023-06-08] MEDS: ASPIRIN 81 MG TAB.CHEW PO SCH (10:35)
[2023-06-08] MEDS ORDERED: ALBUMIN HUMAN 25% 100 ML IV SCH (14:00)
[2023-06-08] MEDS: methylPREDNISolone SS 40 MG/ML VIAL IVP SCH (21:44)
[2023-06-08] MEDS: ATORVASTATIN 20 MG TAB PO SCH (21:45)
[2023-06-09] VITALS (13 sets, daily range): BP systolic 107–138; BP diastolic 65–87; PULSE 80–99; RESP 18–24; TEMP 96.4–97.8; O2SAT 90–98
[2023-06-09 06:32] LABS: ANION GAP 10.7 (8-16); CARBON DIOXIDE 29.4 mmol/L (21-32); CREATININE 1.6 mg/dL (0.6-1.3); POTASSIUM 5.1 mmol/L (3.5-5.1)
[2023-06-09 06:34] LABS: BASOPHILS % (AUTO) 0.4 % (0.0-2.0); EOSINOPHILS % (AUTO) 0.1 % (0.0-4.0); HEMATOCRIT 48.9 % (36-52); HEMOGLOBIN 16.1 g/dL (12.0-18.0); LYMPHOCYTES # (AUTO) 0.5 K/uL (2.0-11.5); LYMPHOCYTES % (AUTO) 10.1 % (20.5-51.1); MEAN CORPUSCULAR HEMOGLOBIN 31 pg (27-31); MEAN CORPUSCULAR HGB CONC 33 g/dL (33-37); MEAN CORPUSCULAR VOLUME 92.8 fL (80-94); MONOCYTES # (AUTO) 0.2 K/uL (0.8-1.0); MONOCYTES % (AUTO) 4.7 % (1.7-9.3); NEUTROPHILS # (AUTO) 4.3 K/uL (1.8-7.7); NEUTROPHILS % (AUTO) 84.7 % (42.2-75.2); PLATELET COUNT (AUTO) 165 K/uL (140-450); RED BLOOD CELL COUNT(AUTO) 5.26 MIL/uL (4.20-6.10); RED CELL DISTRIBUTION WIDTH 14.9 % (11.6-13.7); WHITE BLOOD COUNT (AUTO) 5.1 K/uL (4.8-10.8)
[2023-06-09] MEDS: BLOOD GLUCOSE MONITORING 1 DEV DEV FS SCH ×4 (06:53→21:00)
[2023-06-09] MEDS: FUROSEMIDE 40 MG/4 ML VIAL IVP SCH (09:52)
[2023-06-09] MEDS: methylPREDNISolone SS 40 MG/ML VIAL IVP SCH (09:52)
[2023-06-09] MEDS: SPIRONOLACTONE 25 MG TAB PO SCH ×2 (09:55→21:15)
[2023-06-09] MEDS: ASPIRIN 81 MG TAB.CHEW PO SCH (09:56)
[2023-06-09] MEDS: LOSARTAN 50 MG TAB PO SCH (09:56)
[2023-06-09] MEDS: carvediloL 6.25 MG TAB PO SCH ×2 (09:57→21:14)
[2023-06-09 12:14] LABS: BLOOD GAS HCO3 27.8 mmol/L (22-26); BLOOD GAS O2 SAT% 94.9 % (92.0-98.5); BLOOD GAS PCO2 42.9 mmHg (35-45); BLOOD GAS PO2 72.1 mmHg (75-100)
[2023-06-09] MEDS: INSULIN LISPRO SLIDING SCALE 100 UNITS/ML VIAL SUBQ PRN ×3 (12:59→21:23)
[2023-06-09] MEDS: ATORVASTATIN 20 MG TAB PO SCH (21:15)
[2023-06-10] VITALS (8 sets, daily range): BP systolic 118–143; BP diastolic 56–98; PULSE 70–102; RESP 16–20; TEMP 97.5–98.6; O2SAT 93–96
[2023-06-10] MEDS: methylPREDNISolone SS 40 MG/ML VIAL IVP SCH ×3 (00:24→20:43)
[2023-06-10] MEDS: BLOOD GLUCOSE MONITORING 1 DEV DEV FS SCH ×4 (06:48→20:45)
[2023-06-10] MEDS: SPIRONOLACTONE 25 MG TAB PO SCH ×2 (09:27→20:43)
[2023-06-10] MEDS: ASPIRIN 81 MG TAB.CHEW PO SCH (09:27)
[2023-06-10] MEDS: carvediloL 6.25 MG TAB PO SCH ×2 (09:28→20:44)
[2023-06-10] MEDS: LOSARTAN 50 MG TAB PO SCH (09:29)
[2023-06-10] MEDS: FUROSEMIDE 40 MG/4 ML VIAL IVP SCH (09:37)
[2023-06-10] MEDS: INSULIN LISPRO SLIDING SCALE 100 UNITS/ML VIAL SUBQ PRN ×2 (11:34→20:45)
[2023-06-10] MEDS: ATORVASTATIN 20 MG TAB PO SCH (20:44)
[2023-06-11] VITALS: BP 129/76; PULSE 89; RESP 19; TEMP 97.9; O2SAT 96
[2023-06-11 04:00] VITALS: BP 126/84; PULSE 92; RESP 19; TEMP 97.6; O2SAT 96
[2023-06-11] MEDS: INSULIN LISPRO SLIDING SCALE 100 UNITS/ML VIAL SUBQ PRN (06:37)
[2023-06-11] MEDS: BLOOD GLUCOSE MONITORING 1 DEV DEV FS SCH ×2 (06:53→12:18)
[2023-06-11 07:17] LABS: BASOPHILS % (AUTO) 0.1 % (0.0-2.0); HEMATOCRIT 50.4 % (36-52); HEMOGLOBIN 17.2 g/dL (12.0-18.0); LYMPHOCYTES # (AUTO) 0.5 K/uL (2.0-11.5); LYMPHOCYTES % (AUTO) 6.4 % (20.5-51.1); MEAN CORPUSCULAR HEMOGLOBIN 31 pg (27-31); MEAN CORPUSCULAR HGB CONC 34 g/dL (33-37); MEAN CORPUSCULAR VOLUME 91.9 fL (80-94); MONOCYTES # (AUTO) 0.3 K/uL (0.8-1.0); MONOCYTES % (AUTO) 3.9 % (1.7-9.3); NEUTROPHILS # (AUTO) 7.6 K/uL (1.8-7.7); NEUTROPHILS % (AUTO) 89.6 % (42.2-75.2); PLATELET COUNT (AUTO) 195 K/uL (140-450); RED BLOOD CELL COUNT(AUTO) 5.49 MIL/uL (4.20-6.10); RED CELL DISTRIBUTION WIDTH 14.9 % (11.6-13.7); WHITE BLOOD COUNT (AUTO) 8.5 K/uL (4.8-10.8)
[2023-06-11 07:36] LABS: ANION GAP 13.1 (8-16); CALCIUM 8.9 mg/dL (8.5-10.1); CARBON DIOXIDE 27.6 mmol/L (21-32); CREATININE 1.2 mg/dL (0.6-1.3); POTASSIUM 4.7 mmol/L (3.5-5.1)
[2023-06-11 07:58] VITALS: PULSE 92
[2023-06-11] MEDS: carvediloL 6.25 MG TAB PO SCH (08:31)
[2023-06-11] MEDS: ASPIRIN 81 MG TAB.CHEW PO SCH (08:31)
[2023-06-11] MEDS: SPIRONOLACTONE 25 MG TAB PO SCH (08:31)
[2023-06-11] MEDS: FUROSEMIDE 40 MG/4 ML VIAL IVP SCH (08:31)
[2023-06-11] MEDS: methylPREDNISolone SS 40 MG/ML VIAL IVP SCH (08:32)
[2023-06-11] MEDS: LOSARTAN 50 MG TAB PO SCH (08:32)
[2023-06-11 09:40] VITALS: BP 125/89; PULSE 94; RESP 19; TEMP 97.3; O2SAT 95
[2023-06-11 09:41] VITALS: PULSE 94; RESP 19; O2SAT 95
[2023-06-11 10:30] VITALS: BP 135/89; PULSE 94; RESP 18; TEMP 97.3
== END 2023-06-11 15:00 | disposition home or self-care (01) | DRG 194 ==
LOC: MED 20:08 → MTU 06-07 00:47
PROVIDERS: ADMIT Internal Medicine; ATTEND Internal Medicine
PROC: 5A09457 Assistance with Respiratory Ventilation, 24-96 Consecutive Hours, Continuous Positive Airway Pressure (ICD-10-PCS; principal; 2023-06-07)
DX: I11.0 Hypertensive heart disease with heart failure (principal); J96.01 Acute respiratory failure with hypoxia; E44.0 Moderate protein-calorie malnutrition; I27.20 Pulmonary hypertension, unspecified; I50.43 Acute on chronic combined systolic (congestive) and diastolic (congestive) heart failure; I25.5 Ischemic cardiomyopathy; F15.10 Other stimulant abuse, uncomplicated; Z20.822 Contact with and (suspected) exposure to COVID-19; F17.200 Nicotine dependence, unspecified, uncomplicated; E11.9 Type 2 diabetes mellitus without complications; Z79.899 Other long term (current) drug therapy; Z68.31 Body mass index [BMI] 31.0-31.9, adult; J44.1 Chronic obstructive pulmonary disease with (acute) exacerbation
CPT/HCPCS: 36415; 36600; 71045; 80048; 80076; 82140; 82803; 82948; 83690; 83735; 83880; 84100; 84443; 84484; 85025; 85610; 85730; 87081; 93005; 94640; 94660; 96374; 96375; 99291; J0696; J1815; J1940; J2270; J2405; J2920; J7060; J7614; P9046